=== PATIENT | female | born 1990 | race Hispanic/Latino ===

== ENCOUNTER 2018-06-15 06:44 | Day surgery (SDC) | payer OTHER, SELFPAY ==
[2018-06-14 12:25] VITALS: BMI 24.0
[2018-06-15] VITALS (10 sets, daily range): BP systolic 107–123; BP diastolic 68–84; PULSE 78–92; RESP 10–16; TEMP 36.1–36.6; O2SAT 81–100; BMI 25.0
[2018-06-15] MEDS: MIDAZOLAM 2 MG/2 ML VIAL IV (07:48)
[2018-06-15] MEDS: LACTATED RINGERS 1,000 ML 42 ML IV ×2 (07:48→08:54)
--- NOTE | 2018-06-15 07:51 | PM.PREOP ---
Pre-operative Note Interval Note Pre-op Check: Yes History & Physical Reviewed by Physician and Yes Exam Performed Changes: No
[2018-06-15] MEDS: CEFAZOLIN 2 GM/100 ML FROZ.PIGGY IV (07:56)
--- NOTE | 2018-06-15 08:22 | SUR.OPER ---
Supine on padded OR bed, head on pillow, arms secured on padded arm boards at <90 degrees abduction, legs uncrossed, safety belt at thigh, tape over blanket over lower legs.
[2018-06-15] MEDS: BUPIVACAINE 0.25% (PF) VIAL 30 ML INJ (08:30)
[2018-06-15] MEDS: fentaNYL 100 MCG/2 ML INJ 50 MCG IV ×2 (10:03→10:11)
--- NOTE | 2018-06-15 10:16 | P.OP_ITS ---
Operative Date/Time/Diagnoses Date of procedure: 06/15/18 Time of procedure: 08:05 Pre-op diagnosis: Left hallux valgus Post-op diagnosis: same Procedure & Clinicians Procedure: Left modified Her procedure Left 1st metatarsal scarf osteotomy Same procedure as scheduled: Yes Indications: 28-year-old female with a many years of a bunion deformity that has been symptomatic for over 18 months. 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 She failed shoe wear modifications and anti-inflammatory medications and was indicated for surgery. The risks, benefits, alternatives, were discussed. Risks include pain , bleeding, infection, lack of symptom relief, need for further procedures, implant complications, malunion, nonunion, transfer metatarsalgia, hallux varus , recurrent hallux valgus, neurovascular injury, numbness on the toe. She signed a consent form. Surgeon: Meño Mace Assistant Professor Of Theater: Nik Dias Click Yes if Unassisted: No Anesthesia Type: General and Local Operative Notes Findings: Hallux valgus. Scarf osteotomy reduced the intermetatarsal angle and reduce the sesamoids Closure Type: primary Specimen(s): none sent Implants & Drains: 2.0 mm screw x2 Estimated Blood Loss (mL): 5 Blood products transfused: none Tourniquet time (min): 83 Procedure in detail: The patient was met in the preop hold area and in the procedure. Operative extremity was signed. Consent was verified. She desired to proceed. She was brought to the operating room and surrendered anesthesia. Once general anesthesia been obtained was placed in the supine position all bony prominences were well padded. She was then prepped and draped in standard sterile fashion. A surgical time-out was held to confirm the patient procedure , did a, allergies, images, antibiotics. All were in agreement we proceeded. An Esmarch was used to exsanguinate the limb and the tourniquet was elevated 250 mm of mercury. A 2 cm incision was made after localizing with fluoroscopy between the 1st and 2nd metatarsal heads at the level of the sesamoids. Blunt dissection was brought down to the interval and the lateral sesamoid was identified. The insertion of the adductor and the intermetatarsal ligament was identified and sharply transected with a 15 blade. I then made a sharp incision between the sesamoid and the metatarsal head releasing the sesamoid from the capsule. The sesamoid was then freely mobile and the toe was brought into varus. A 7 cm longitudinal incision was then made over the medial aspect of the 1st metatarsal. Scissor dissection was used distally to identify the nerve and it was retracted dorsally. I sharply came down through the capsule and the periosteal tissue released the capsule from the metatarsal head. I took care to leave soft tissue attachments on the plantar distal surface of the metatarsal neck to preserve the blood supply. Once visualization was adequate in placed Homans on the top and bottom. Identified the center of the metatarsal head and marked it with the electrocautery. I then used fluoroscopy to establish my trajectory for the transverse cuts as well as the level of the cut proximally. I ensured to be at the metaphyseal flare. I then made my transverse cut of the dorsal 1/3 near the metatarsal head and left that saw blade in place. I then made parallel transverse cut in the plantar proximal metatarsal at the metaphyseal flare. A 2nd cut was then made 3 mm proximal to that. I then made a longitudinal cut in the coronal plane and foot ensuring it to be parallel to the plantar surface of the foot. I then used a [place] elevator to release the periosteal tissue from the far side of the osteotomy. I then used a towel clip to grab the medial spike and pushed the medics tarsal head laterally. This was then clamped with the scarf clamp. X-rays were taken to ensure an adequate reduction. I pulled on the plantar capsule and ensured I can reduce the sesamoids. Satisfied with the position of the osteotomy I placed 2 screws from dorsal to plantar. The distal screw I visualized the metatarsal head and sure that it was not seen. Plantarly I ensured bicortical purchase while viewing plantarly. The clamp was then removed and the osteotomy was very stable. I then used a sagittal saw to remove the dorsal medial spike of bone. X-rays were used to confirm the reduction and position of implants. I then irrigated the wound copiously and placed the medial shelf bone plantarly in the osteotomy site. Satisfied with this I removed a small sleeve of the plantar capsule for further imbrication. I then imbricated from plantar distal to proximal dorsal using 0 Vicryl with 5 sutures. This pulled the toe over very nicely and reduce the sesamoids. I then closed the periosteal tissue with 0 Vicryl the dermal tissue with 2 O Vicryl and a running nylon in the skin. Vertical mattress sutures were used in a modified Her incision. I then placed a dressing and the tourniquet was dropped. It was noted that the great toe did not fill with blood to the same extent the lesser toes did. I then removed the dressing and examined the incisions. There was no significant bleeding coming out of the incisions and there is no significant swelling. After waiting for 1 min the great toe became hyperemic similar to the other toes. A dressing was then again placed but nothing was placed circumferentially around the base of the great toe. She was then awakened and transferred to the recovery room. Complications: none Condition: stable Disposition: same day surgery Plan for aftercare: Nonweightbearing for 2 weeks. She may begin weight-bearing in a forefoot offloading shoe at that time. She will wear a hard-soled shoe until there is radiographic evidence of healing.
[2018-06-15] MEDS: LORazepam 2 MG/ML SYRINGE 0.5 MG IV (10:20)
[2018-06-15] MEDS: OXYCODONE IR 5 MG TABLET PO (10:52)
[2018-06-15] MEDS: METOCLOPRAMIDE 10 MG/2 ML INJ IV (11:00)
[2018-06-15] MEDS: ONDANSETRON 4 MG/2 ML INJ IV (11:11)
== END 2018-06-15 11:48 | disposition home or self-care (01) ==
PROVIDERS: Visit Provider Orthopaedic Surgery
PROC: 0QBP0ZZ Excision of Left Metatarsal, Open Approach (ICD-10-PCS; CPT 28292; principal; 2018-06-15 07:45)
DX: M21.612 Bunion of left foot (principal)
CPT/HCPCS: 28296; J0690; J1100; J2060; J2250; J2405; J2704; J2765; J3010

== ENCOUNTER → 2022-03-02 06:54 | Outpatient (CLI) | payer OTHER, SELFPAY ==
[2022-03-02 07:49] LABS: HCG Quantitative /Beta subunit 259.4 mIU/mL
== END ==
PROVIDERS: PCP Family Medicine; Referring Provider Obstetrics & Gynecology Reproductive Endocrinology; Visit Provider Obstetrics & Gynecology Reproductive Endocrinology
DX: Z32.00 Encounter for pregnancy test, result unknown (principal)
CPT/HCPCS: 36415; 84702

== ENCOUNTER → 2022-03-04 07:05 | Outpatient (CLI) | payer OTHER, SELFPAY ==
[2022-03-04 08:43] LABS: HCG Quantitative /Beta subunit 791.3 mIU/mL
[2022-03-04 08:58] LABS: Thyroid Stimulating Hormone 1.67 uIU/mL (0.47-4.68)
== END ==
PROVIDERS: PCP Family Medicine; Referring Provider Obstetrics & Gynecology Reproductive Endocrinology; Visit Provider Obstetrics & Gynecology Reproductive Endocrinology
DX: Z32.01 Encounter for pregnancy test, result positive (principal)
CPT/HCPCS: 36415; 84443; 84702

== ENCOUNTER → 2022-04-01 16:00 | Outpatient (CLI) | payer OTHER, SELFPAY ==
[2022-04-01 16:24] LABS: Add Manual Diff / Slide Review NO; Basophils Absolute Auto 100 /uL (0-100); Basophils Percent Auto 0.5 % (0-2); Eosinophils Absolute Auto 100 /uL (0-450); Eosinophils Percent Auto 1.2 % (2-4); Hematocrit 36.8 % (36-46); Hemoglobin 12.5 g/dL (12.0-16.0); Lymphocytes Absolute Auto 2500 /uL (1100-4500); Lymphocytes Percent Auto 23.8 % (25-40); Mean Corpuscular HGB Conc 33.8 % (30-36); Mean Corpuscular Hemoglobin 29.6 PG (26-34); Mean Corpuscular Volume 87.4 fL (80-100); Monocytes Absolute Auto 800 /uL (0-900); Monocytes Percent Auto 7.7 % (3-14); Neutrophils Absolute Auto 7100 /uL (1500-7000); Neutrophils Percent Auto 66.8 % (50-75); Platelet Count 261 X10^3/uL (150-400); Red Blood Cell Count 4.22 X10^6/uL (4.0-5.2); Red Cell Distribution Width 12.7 % (11.6-14.8); White Blood Cell Count 10.6 X10^3/uL (4.5-11.0)
[2022-04-02 04:37] LABS: RPR Screen Non Reactive (Non Reactive)
[2022-04-02 08:53] LABS: Varicella IgG Antibody 309 index (Immune >165)
[2022-04-04 04:18] LABS: HIV 1 & 2 Ab/Ag 4th Gen Combo NEGATIVE (NEGATIVE); Hep C Virus Ab w/Reflex Quant NEGATIVE s/c (NEGATIVE); Hepatitis B Surface Antigen NEGATIVE s/c (NEGATIVE); Rubella Antibody IgG 6.8 IU/mL (>15)
== END ==
PROVIDERS: PCP Family Medicine; Referring Provider Obstetrics & Gynecology; Visit Provider Obstetrics & Gynecology
DX: Z34.01 Encounter for supervision of normal first pregnancy, first trimester (principal)
CPT/HCPCS: 36415; 80055; 86787; 86803; 86850; 86900; 86901; 87389

== ENCOUNTER → 2022-04-14 12:47 | Outpatient (CLI) | payer OTHER, SELFPAY ==
[2022-04-14 13:11] LABS: Appearance Urine UA SL CLOUDY; Bilirubin Urine UA NEGATIVE (NEGATIVE); Color Urine UA YELLOW; Glucose Urine UA NEGATIVE (Negative); Ketones Urine UA NEGATIVE (NEGATIVE); Leukocyte Esterase Urine UA NEGATIVE (NEGATIVE); Nitrite Urine UA NEGATIVE (Negative); Occult Blood Urine UA TRACE-INTACT (Negative); Protein Urine UA NEGATIVE (Negative); Specific Gravity Urine UA 1.025 (1.000-1.035); Urobilinogen Urine UA 0.2 E.U./dL (0.2)
[2022-04-14 13:13] LABS: pH Urine UA 5.5 (4.5-8.0)
== END ==
PROVIDERS: PCP Family Medicine; Referring Provider Obstetrics & Gynecology; Visit Provider Obstetrics & Gynecology
DX: Z34.01 Encounter for supervision of normal first pregnancy, first trimester (principal)
CPT/HCPCS: 81003; 87086

== ENCOUNTER → 2022-05-31 11:49 | Outpatient (CLI) | payer OTHER, SELFPAY ==
[2022-06-07 12:08] LABS: AFP Value 40.8 ng/mL (.); Gest Age on Col Date 16.9 weeks (.); Gestational Age As provided (.); Insulin Dep Diabetes No (.); OSBR Risk 1IN 9862 (.); Results Report (.); Test Results *Screen Negative* (.)
== END ==
PROVIDERS: Referring Provider Obstetrics & Gynecology; Visit Provider Obstetrics & Gynecology
DX: Z34.02 Encounter for supervision of normal first pregnancy, second trimester (principal); Z3A.16 16 weeks gestation of pregnancy
CPT/HCPCS: 36415; 82105

== ENCOUNTER → 2022-06-24 10:05 | Outpatient (CLI) | payer OTHER, SELFPAY ==
--- NOTE | 2022-06-24 10:05 | DI.US.S_ITS ---
PROCEDURE: US OB >= 14 WEEKS FETUS INDICATIONS: 20 week anatomy scan OUTSIDE/PRIOR DATING DATA: Last menstrual period (LMP): 02/01/2022 LMP-based estimated date of delivery (NELSON): 11/08/2022 First dating scan (date and location): Not available Estimated date of delivery (NELSON) from first dating scan: Not available The calculations are made using the clinically provided NELSON of 11/08/2022. TECHNIQUE: Real-time scanning was performed of the fetus, with image documentation and biometric measurements. Endovaginal scanning: Not indicated COMPARISON: None. FINDINGS: General: A single living intrauterine gestation is present. Presentation: Breech. Placenta: Placental position is posterior, without previa. Amniotic fluid index: 11.2 cm, normal range is 5-24 cm. Single deepest vertical pocket is 3.8 cm. heart rate: 122 beats per minute. Maternal cervical canal: 3 cm long. Normal lower limit is 2.5 cm. biometrics: Biparietal diameter: 4.83 cm, 20 weeks, 4 days. Head circumference: 18.36 cm, 20 weeks, 5 days. Abdominal circumference: 15.67 cm, 20 weeks, 6 days. Femur length: 3.35 cm, 20 weeks, 3 days. Clinically estimated gestational age: 20 weeks, 3 days Composite gestational age from present scan: 20 weeks, 5 days Estimated weight and percentile: 370 g, 60%. Anatomic survey: Neuro: Ventricles are non-dilated at less than 10 mm. Cisterna magna is normal at 3-11 mm. Cerebellum is normal in size and morphology. Nuchal skin fold: Normal at less than 6 mm between 14-21 weeks gestational age. Face: Nose and lips, facial profile are not well seen. Spine: Not well seen Heart: 4-chambered heart is present. Right ventricular outflow tract is not well seen. Diaphragm: Diaphragm is intact. Stomach: Left-sided stomach is present. Kidneys: No hydronephrosis. Normal is less than 5 mm in 2nd trimester, less than 7 mm in 3rd trimester. Cord: 3-vessel cord has orthotopic insertion. Bladder: Normal in size. Extremities: All 4 extremities identified. IMPRESSION: 1. Single live intrauterine gestation with fetus in breech presentation. heart rate is 122 beats per minute. Normal amount of amniotic fluid. Estimated weight is at 60%. 2. facial profile, spine, and outflow tracts are not well seen due to position. Rest of the anatomic survey is within normal limits. We strive to produce accurate, complete, and clear reports of imaging services. To assist us in improving patient care, this report was composed using standard report templates and voice recognition software. Therefore, it may contain abnormal punctuation, insertions and/or omissions. Occasional wrong-word or sound-alike substitutions may occur. Though we review the report and make efforts to correct it, we do recommend that the report be read carefully in proper context to recognize any text inaccuracies. Dictated by: Mac Yepez M.D. on 06/24/2022 at 12:14 Approved by: Mac Yepez M.D. on 06/24/2022 at 12:17
== END ==
PROVIDERS: Referring Provider Obstetrics & Gynecology; Visit Provider Obstetrics & Gynecology
DX: O32.1XX0 Maternal care for breech presentation, not applicable or unspecified (principal); Z3A.20 20 weeks gestation of pregnancy
CPT/HCPCS: 76811

== ENCOUNTER → 2022-06-29 10:40 | Outpatient (CLI) | payer OTHER, SELFPAY ==
[2022-06-29 15:32] LABS: Urine N gonorrhoeae NOT DETECTED
[2022-06-29 15:40] LABS: Urine Chlamydia NOT DETECTED
== END ==
PROVIDERS: Visit Provider Obstetrics & Gynecology
DX: Z34.02 Encounter for supervision of normal first pregnancy, second trimester (principal); Z3A.21 21 weeks gestation of pregnancy
CPT/HCPCS: 87491; 87591

== ENCOUNTER → 2022-07-05 09:00 | Outpatient (CLI) | payer OTHER, SELFPAY | PROVIDERS: Referring Provider Internal Medicine; Visit Provider Internal Medicine | DX: Z23 Encounter for immunization (principal) | CPT/HCPCS: 90471; 90686 ==

== ENCOUNTER → 2022-07-27 09:07 | Outpatient (CLI) | payer OTHER, SELFPAY ==
--- NOTE | 2022-07-27 09:07 | DI.US.S_ITS ---
PROCEDURE: US OB FOLLOW UP INDICATIONS: RE-EVALUATE TECHNIQUE: Real-time scanning was performed of the fetus, with image documentation. Endovaginal scanning: Not performed COMPARISON: 06/26/2022. FINDINGS: A single living intrauterine gestation is present. Presentation: Vertex. Placenta: Placental position is posterior, without previa. Amniotic fluid index: 10.5 cm, normal range is 5-24 cm. Single deepest vertical pocket is 4.9 cm. heart rate: 123 beats per minute. Maternal cervical canal: 3.4 cm long. Normal lower limit is 2.5 cm. Estimated gestational age from initial scan: 25 weeks 3 days facial profile is normal. Normal appearance of the spine. Right ventricular outflow tract appears normal.. IMPRESSION: Single living intrauterine gestation with normal completion anatomic survey. Dictated by: Rey Thornton M.D. on 07/27/2022 at 13:46 Approved by: Rey Thornton M.D. on 07/27/2022 at 13:48
== END ==
PROVIDERS: Referring Provider Obstetrics & Gynecology; Visit Provider Obstetrics & Gynecology
DX: Z36.2 Encounter for other antenatal screening follow-up (principal); Z3A.25 25 weeks gestation of pregnancy
CPT/HCPCS: 76816

== ENCOUNTER → 2022-08-10 08:34 | Outpatient (CLI) | payer OTHER, SELFPAY ==
[2022-08-10 10:19] LABS: Hemoglobin 11.2 g/dL (12.0-16.0)
[2022-08-10 10:44] LABS: GTT (PREG) 1 Hour PP 50gm Dose 156 mg/dL (76-139)
== END ==
PROVIDERS: Referring Provider Obstetrics & Gynecology; Visit Provider Obstetrics & Gynecology
DX: Z34.02 Encounter for supervision of normal first pregnancy, second trimester (principal); Z3A.26 26 weeks gestation of pregnancy
CPT/HCPCS: 82950; 85014; 85018

== ENCOUNTER → 2022-08-15 07:37 | Outpatient (CLI) | payer OTHER, SELFPAY ==
[2022-08-15 10:27] LABS: Glucose Fasting Gestational 84 mg/dL (76-95)
[2022-08-15 10:47] LABS: Glucose 1 Hour Gest 207 mg/dL (76-180)
[2022-08-15 10:47] LABS: Glucose 2 Hour Gest 178 mg/dL (76-155)
[2022-08-15 10:53] LABS: Glucose Tol Interp,Gestational INTERPRETATION
[2022-08-15 11:40] LABS: Glucose 3 Hour Gest 69 mg/dL (76-140)
== END ==
PROVIDERS: Referring Provider Obstetrics & Gynecology; Visit Provider Obstetrics & Gynecology
DX: O99.810 Abnormal glucose complicating pregnancy (principal)
CPT/HCPCS: 36415; 82951; 82952

== ENCOUNTER 2022-08-17 13:56 | Outpatient (CLI) | payer OTHER, SELFPAY ==
--- NOTE | 2022-08-17 14:37 | DI.US.S_ITS ---
PROCEDURE: US OB BIOPHYSICAL PROFILE INDICATIONS: DECREASED MOVEMENT. OUTSIDE/PRIOR DATING DATA: Last menstrual period (LMP): 02/01/2022. LMP-based estimated date of delivery (NELSON): 11/08/2022. First dating scan (date and location): 06/24/2022. Estimated date of delivery (NELSON) from first dating scan: 11/06/2022. TECHNIQUE: Real-time scanning was performed of the fetus for biophysical profile, with image documentation. Color and pulse Doppler interrogation was also performed of the umbilical artery near its insertion into the placenta. Endovaginal scanning: None COMPARISON: None. FINDINGS: General: A single living intrauterine gestation is present. Presentation: Vertex. Placenta: Placental position is posterior , without previa. Amniotic fluid index: 15.3 cm, normal range is 5-24 cm. Single deepest vertical pocket is 5.1 cm. heart rate: 118 beats per minute. Maternal cervical canal: 3.4 cm long. Normal lower limit is 2.5 cm. Estimated gestational age from initial scan: 28 week 1 day. Biophysical profile: Tone: 2 points. Movement: 2 points. Respiration: 2 points. Largest pocket of fluid: 2 points. IMPRESSION: Single live intrauterine consistent with a 28 week 1 day gestation. Biophysical profile score 8/8 Approved by: Grayson Aggarwal M.D. on 08/17/2022 at 15:18
--- NOTE | 2022-08-17 15:46 | P.TNLD_ITS ---
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 ago while at work. She presents to the [facility] for evaluation. Her baby remains normally active and she denies contractions, bleeding, or significant change in vaginal discharge. Vital Signs Vital Signs: BP = 123/70 P = 85 T = 36.5C [facility] Medical History (Updated 08/18/22 @ 07:21 by Cortes Lyon MD) Abnormal Pap smear of cervix Ankle pain (~2004) Arthritis Bunion of great toe of left foot Heart murmur (~1990) Human papilloma virus Pain Surgical History (Updated 04/19/22 @ 17:54 by Cortes Lyon MD) Anesthesia H/O ovarian cystectomy History of ankle surgery History of bunionectomy (~2017) Hx of appendectomy Status post ORIF of fracture of ankle Family History (Updated 04/18/22 @ 21:00 by Roberta Morfin) Mother Bipolar affect, depressed Lupus Grandfather Diabetes mellitus Hypertension Hyperlipidemia Grandmother Hyperlipidemia Hypertension Hyperthyroidism Bipolar affect, depressed Grandmother Cancer Social History marital status: number of children: 0 household members: spouse lives independently: Yes housing: house pets and animals: Yes (2 dogs) education level: master's degree occupational status: employed current occupational exposures/hazards: No special gualberto needs: No travel history: over 6 months ago seatbelt use: always helmet use: Yes water heater temp set < 120 deg: Yes (Will check and adjust) working smoke detector in home: Yes fire extinguisher in home: Yes carbon monox detector in home: Yes firearms in home: Yes firearms unloaded and locked: Yes do you feel safe at home: Yes Smoking Status: Never smoker second hand exposure: No (as a child, not as adult) alcohol intake: former (occasional social drinker, not while ) substance use type: does not use during the past year weight has: remained stable well-balanced diet: daily or most days daily servings fruits/ve or more times/day caffeine: Yes (Aware of 200mg limit) Type(s) of exercise: walking frequency: 3-4 times per week Review of Systems Review of Systems Narrative: Problem-specific ROS positives included in HPI Exam Const General: cooperative and anxious Nutritional Appearance: average body habitus Orientation: alert and oriented x3 HENMT Head: normal to inspection, normocephalic and atraumatic Eyes General: appearance normal, both eyes and all related structures Conjunctivae: conjunctivae normal Sclera: sclerae normal Pupils: PERRL EOM: EOM intact bilaterally Neck Neck: normal visual inspection Resp Effort & Inspection: normal respiratory effort and able to speak in complete sentences Cardio Rate: regular rate Rhythm: regular rhythm GI Inspection: normal to inspection Palpation: soft and no hepatosplenomegaly Uterus Location (Fundal Height): 28 Presentation: vertex Estimated Weight (lbs): 4 Extrem Right lower extremity: normal to inspection Objective Imaging BPP: Radiologist's impression: PROCEDURE:? US OB BIOPHYSICAL PROFILE ? INDICATIONS:? DECREASED MOVEMENT. ? OUTSIDE/PRIOR DATING DATA:? Last menstrual period (LMP):? 02/01/2022.? LMP-based estimated date of delivery (NELSON):? 11/08/2022.? First dating scan (date and location):? 06/24/2022.? Estimated date of delivery (NELSON) from first dating scan:? 11/06/2022. ? TECHNIQUE:? Real-time scanning was performed of the fetus for biophysical profile, with image documentation.? Color and pulse Doppler interrogation was also performed of the umbilical artery near its insertion into the placenta.? Endovaginal scanning:? None ? COMPARISON:? None. ? FINDINGS:? ? General:? A single living intrauterine gestation is present.? Presentation:? Vertex.? Placenta:? Placental position is posterior , without previa.? ? Amniotic fluid index:? 15.3 cm, normal range is 5-24 cm.? Single deepest vertical pocket is 5.1 cm. heart rate:? 118 beats per minute.? Maternal cervical canal:? 3.4 cm long.? Normal lower limit is 2.5 cm.? Estimated gestational age from initial scan:? 28 week 1 day.? ? Biophysical profile:? Tone:? 2 points. Movement:? 2 points. Respiration:? 2 points. Largest pocket of fluid:? 2 points.?? ? IMPRESSION:? ? Single live intrauterine consistent with a 28 week 1 day gestation. ? Biophysical profile score 05/16 Evaluation Evaluation Baseline heart rate: 115 Variability: Average (6-10) monitor accelerations: Present Monitor Decelerations: Absent Category of Tracing: Reactive Non-invasive Membranes Rupture Test: negative Diagnosis, Plan/Disposition Final Diagnosis (1) Gestational diabetes: Status: Acute (2) Conceived by in vitro fertilization: Status: Acute (3) : Status: Acute Problem details: 28+0 weeks EGA, low baseline FHR but reactive for EGA (4) Rubella non-immune status, antepartum: Status: Acute Plan/Disposition Plan: Patient reassured that there's no evidence of PPROM w/ negative AmniSure and normal GERMAIN. Also reassured that @ 5% of infants have a low baseline FHR below 120BPM but she is understandably anxious and will facilitate a return visit with [facility] for their assessment and input re: surveillance going forward. Patient will continue kick counts and note written for bedrest until seen next week and re-evaluated. PTL precautions reviewed. OB Disposition: home
== END 2022-08-17 15:45 | disposition home or self-care (01) ==
LOC: LABOR 15:02 → OB 08-29 07:49
PROVIDERS: Referring Provider Obstetrics & Gynecology; Visit Provider Obstetrics & Gynecology
DX: Z03.71 Encounter for suspected problem with amniotic cavity and membrane ruled out (principal); O24.415 Gestational diabetes mellitus in pregnancy, controlled by oral hypoglycemic drugs; O09.813 Supervision of pregnancy resulting from assisted reproductive technology, third trimester; Z3A.28 28 weeks gestation of pregnancy
CPT/HCPCS: 59025; 76817; 76819; 84112; G0378; G0379

== ENCOUNTER 2022-08-19 12:29 | Outpatient (CLI) | payer OTHER, SELFPAY ==
--- NOTE | 2022-08-19 13:31 | PM.OBTRLD ---
Visit Information Visit Information Date of evaluation: 08/19/22 Primary OB Provider: Cortes Lyon On-call OB Provider: Cortes Lyon Reason for Evaluation: Yes non-stress test Comments/Additional reasons for admission: Ashlee returns today for a follow-up NST after her baseline HR was found to be below 120 BPM at a recent assessment. Labs pending for Sjogren's AB's due to FH of lupus and she is due to have another echo at [facility] on 08/24/2022. [facility] Medical History (Updated 08/18/22 @ 07:21 by Cortes Lyon MD) Abnormal Pap smear of cervix Ankle pain (~2004) Arthritis Bunion of great toe of left foot Heart murmur (~1990) Human papilloma virus Pain Surgical History (Updated 04/19/22 @ 17:54 by Cortes Lyon MD) Anesthesia H/O ovarian cystectomy History of ankle surgery History of bunionectomy (~2017) Hx of appendectomy Status post ORIF of fracture of ankle Family History (Updated 04/18/22 @ 21:00 by Roberta Morfin) Mother Bipolar affect, depressed Lupus Grandfather Diabetes mellitus Hypertension Hyperlipidemia Grandmother Hyperlipidemia Hypertension Hyperthyroidism Bipolar affect, depressed Grandmother Cancer Social History marital status: number of children: 0 household members: spouse lives independently: Yes housing: house pets and animals: Yes (2 dogs) education level: master's degree occupational status: employed current occupational exposures/hazards: No special gualberto needs: No travel history: over 6 months ago seatbelt use: always helmet use: Yes water heater temp set < 120 deg: Yes (Will check and adjust) working smoke detector in home: Yes fire extinguisher in home: Yes carbon monox detector in home: Yes firearms in home: Yes firearms unloaded and locked: Yes do you feel safe at home: Yes Smoking Status: Never smoker second hand exposure: No (as a child, not as adult) alcohol intake: former (occasional social drinker, not while ) substance use type: does not use during the past year weight has: remained stable well-balanced diet: daily or most days daily servings fruits/ve or more times/day caffeine: Yes (Aware of 200mg limit) Type(s) of exercise: walking frequency: 3-4 times per week Evaluation Evaluation Baseline heart rate: 115 Variability: Average (6-10) monitor accelerations: Present Monitor Decelerations: Absent Category of Tracing: Reactive Diagnosis, Plan/Disposition Plan/Disposition Plan: Continue close observation of activity and follow-up as planned with another NST to be scheduled for 08/22/2022. OB Disposition: home
== END 2022-08-19 13:28 | disposition home or self-care (01) ==
LOC: LABOR 13:16 → OB 08-29 07:51
PROVIDERS: Referring Provider Obstetrics & Gynecology; Visit Provider Obstetrics & Gynecology
DX: O36.8330 Maternal care for abnormalities of the fetal heart rate or rhythm, third trimester, not applicable or unspecified (principal); O24.415 Gestational diabetes mellitus in pregnancy, controlled by oral hypoglycemic drugs; Z3A.28 28 weeks gestation of pregnancy; Z13.89 Encounter for screening for other disorder; Z82.69 Family history of other diseases of the musculoskeletal system and connective tissue
CPT/HCPCS: 36415; 59025; 86235; 97802; G0378; G0379

== ENCOUNTER → 2022-08-19 13:36 | Outpatient (CLI) | payer OTHER, SELFPAY ==
[2022-08-20 20:56] LABS: SS A Ro Sjogrens Antibody < 0.2 AI (0.0-0.9); SS B La Sjogrens Antibody < 0.2 AI (0.0-0.9)
--- NOTE | 2022-08-23 16:41 | DIAB.GDA ---
Initial Gestational Diabetes Assessment Name: Ashlee Clemens Date: 08/19/22 Time: 205-320p Dx: Gestational Diabetes Provider: Camron NELSON: 11/09/22 Weeks: 28 Ashlee presents for initial visit with , Taras. +FH of DM with maternal grandfather. Otherwise, no FH of DM. Ashlee is having a girl! States she has been following plate method for meals. Feels as though she needs some ideas for snack and feeling more satiated with meals/snacks. Feels she is craving foods, particularly sweets. Taking Metformin 500mg BID Diet Recall: 620-730a: oatmeal +/- eggs or 1/2 wjeat bagel with eggs 9-930a: cheese or pb crackers or granola bar 1130a: chicken quesadilla with one tortilla or PBJ 2p: nuts or fruit strip or chips and guac 4p: pb crackers pkged or apples and pb or pb 630p: ww pasta x 2c with sauce and salad, no protein or pork chops with green beans and corn or steak and veggies +/- potato or sausage and peppers 830p: low carb yogurt with berries or strawberries with whip cream Beverages: 48-60oz water, coffee occasionally Anthropometrics: Ht: 64 Wt: 176# (last OB) Prepregnancy wt: 147# Physical Activity: More movement at work. No current program. Self-Monitoring Blood Glucose: Checking FBG and 1hr pc. One elevated pc breakfast r/t oatmeal + banana. Otherwise, all readings in goal. Date Pre Post Pre Post Pre Post HS 08/16 96 08/17 81 144 91 112 08/18 82 123 125 95 08/19 81 136 84 Diabetes Medications: 500mg Metformin BID Pertinent Labs: OGTT: 84, 207H. 178H, 69L Nutrition Rx: Carbohydrates: Daily: 180-195g Meal: 45-g lunch and dinner; 30g breakfast Snack: 15-30g Nutrition Diagnosis: Altered nutrition related lab value r/t GDM dx aeb recent OGTT Nutrition knowledge deficit r/t new GDM dx aeb OGTT and diet recall Physical inactivity r/t no current program, contemplation stage potentially aeb pt report Intervention: This participant was very receptive. Provided appropriate educational handouts. Discussed the following topics: GDM pathophysiology and impact of hyperglycemia on mom and baby Risk for T2DM for mom and baby in the future Ways to reduce risk T2DM Plate Method, meal timing, carb counting, pairing macronutrients and spreading out CHO for better BG management Blood glucose goals (FBG: <95 and 1 hour <140 mg/dL); importance of checking 4x per day (FBG and pc) Impact of macronutrients on blood glucose Tips for satiety Sweets that have pro and are within carb recs to fulfill cravings Eating out Recommended servings for carbohydrates at meals and snacks Brainstormed appropriate meal plan based on her food preferences Role of physical activity and following provider guidelines for safety Goals: Measure jam in PBJ Balance lunch as discussed try 1 snack in afternoon that is balanced Think about exercise Follow-up: ADINA HARVEY follow-up in two weeks Melody Chery RDN, [facility] Certified Diabetes Care and Store Keeper T: [phone] F: [phone] [email or web address] Thank you for this referral
== END ==
PROVIDERS: Referring Provider Obstetrics & Gynecology; Visit Provider Obstetrics & Gynecology
DX: Z13.89 Encounter for screening for other disorder (principal); Z82.69 Family history of other diseases of the musculoskeletal system and connective tissue
CPT/HCPCS: 36415; 86235; 97802

== ENCOUNTER 2022-08-22 09:21 | Outpatient (CLI) | payer OTHER, SELFPAY ==
--- NOTE | 2022-08-22 10:05 | PM.OBTRLD ---
Visit Information Visit Information Date of evaluation: 08/22/22 Primary OB Provider: Cortes Lyon On-call OB Provider: Lexi Perez Reason for Evaluation: Yes non-stress test non-stress test reason: other (low baseline) Vital Signs Vital Signs: Blood pressure 114/68 rate 85 PFSH Medical History Abnormal Pap smear of cervix Ankle pain (~2004) Arthritis Bunion of great toe of left foot Heart murmur (~1990) Human papilloma virus Pain Surgical History Anesthesia H/O ovarian cystectomy History of ankle surgery History of bunionectomy (~2017) Hx of appendectomy Status post ORIF of fracture of ankle Family History Mother Bipolar affect, depressed Lupus Grandfather Diabetes mellitus Hypertension Hyperlipidemia Grandmother Hyperlipidemia Hypertension Hyperthyroidism Bipolar affect, depressed Grandmother Cancer Social History marital status: number of children: 0 household members: spouse lives independently: Yes housing: house pets and animals: Yes (2 dogs) education level: master's degree occupational status: employed current occupational exposures/hazards: No special gualberto needs: No travel history: over 6 months ago seatbelt use: always helmet use: Yes water heater temp set < 120 deg: Yes (Will check and adjust) working smoke detector in home: Yes fire extinguisher in home: Yes carbon monox detector in home: Yes firearms in home: Yes firearms unloaded and locked: Yes do you feel safe at home: Yes Smoking Status: Never smoker second hand exposure: No (as a child, not as adult) alcohol intake: former (occasional social drinker, not while ) substance use type: does not use during the past year weight has: remained stable well-balanced diet: daily or most days daily servings fruits/ve or more times/day caffeine: Yes (Aware of 200mg limit) Type(s) of exercise: walking frequency: 3-4 times per week Evaluation Evaluation Baseline heart rate: 110 Variability: Moderate (11-25) monitor accelerations: Present Monitor Decelerations: Absent Category of Tracing: Reactive Diagnosis, Plan/Disposition Final Diagnosis (1) 28 weeks gestation of : Status: Acute (2) Gestational diabetes: Status: Acute Plan/Disposition Plan: 32-year-old at 28 weeks and 6 days gestation here for NST due to low heart rate baseline. She was seen last week for the same. BPP was normal on 08/17/22. She is without complaints today and denies contractions, leaking or bleeding. Reports good. NST today with a baseline of 110 with good variability and age-appropriate accelerations. Clinical picture overall reassuring. Follow-up clinic tomorrow with Dr. Lyon as scheduled or return sooner if concerns arise. She also has follow-up scheduled with Maternal Medicine this week. OB Disposition: home
== END 2022-08-22 10:30 | disposition home or self-care (01) ==
LOC: OB 08-29 07:55
PROVIDERS: Referring Provider Obstetrics & Gynecology; Visit Provider Obstetrics & Gynecology
DX: O24.415 Gestational diabetes mellitus in pregnancy, controlled by oral hypoglycemic drugs (principal); O36.8330 Maternal care for abnormalities of the fetal heart rate or rhythm, third trimester, not applicable or unspecified; Z3A.28 28 weeks gestation of pregnancy
CPT/HCPCS: 59025; G0378; G0379

== ENCOUNTER → 2022-09-09 12:52 | Outpatient (CLI) | payer OTHER, SELFPAY ==
--- NOTE | 2022-09-09 16:56 | DIAB.GDFU ---
Follow-up Gestational Diabetes Assessment Name: Ashlee Clemens Date: 09/09/22 Time: 105-135p Dx: Gestational Diabetes Provider: Camron NELSON: 11/09/22 Weeks: 31 Ashlee presents for follow-up GDM visit. States she is transferring care to [facility] for access to a NICU due to cardiac findings. Plans for 39 week induction. Has had Metformin increased to 1000mg BID. Today she reports feeling very hungry, especially between breakfast and lunch. States she overall is not satiated with meals. With recent BG she could likely increase intake some, especially some protein and veggie options but also potentially some carbohydrates. Reports difficulty with diet changes and going on vacation. Reports some guilt with eating and worried about even small carb portions close to meals. Stated some concern that she did not gain much weight at recent OB visit. Anthropometrics: Ht: 64 Wt: 177# (last OB) Prepregnancy wt: 147# Recommend sustaining current weight for remainder of Physical Activity: More movement at work. No current program. Feels a lot of fatigue with current activity level. tries to stay busy on days off. Self-Monitoring Blood Glucose: Checking FBG and 1hr pc. All in goal, except one reading after dinner. Date Pre Post Pre Post Pre Post HS 09/03 88 118 129 111 09/04 93 118 147 09/05 75 119 86 103 09/06 80 112 98 92 09/07 78 91 102 09/08 88 107 85 09/09 77 122 Diabetes Medications: 1000mg Metformin BID Pertinent Labs: OGTT: 84, 207H. 178H, 69L Nutrition Rx: Carbohydrates: Daily: 180-195g Meal: 45-g lunch and dinner; 30g breakfast Snack: 15-30g Nutrition Diagnosis: Altered nutrition related lab value r/t GDM dx aeb recent OGTT Nutrition knowledge deficit r/t new GDM dx aeb OGTT and diet recall - improved Physical inactivity r/t no current program due to fatigue aeb pt report - cont Intervention: This participant was very receptive. Provided appropriate educational handouts. Discussed the following topics: Recent blood sugar results and impact of food and hormones Review of macronutrient recommendations during Reviewed ways to increase PO and satiety, ie protein, vegetables, some carb options Discussed ways family can be supportive in lifestyle changes Reviewed healthy weight goal of min gain or sustaining current weight is ok Physical activity barriers Reviewed BG goals: 1 hour pc of 110-140mg/dL Heidi in making changes to minimize guilt Goals: Measure jam in PBJ- d/c (none lately) Balance lunch as discussed- met try 1 snack in afternoon that is balanced- met Think about exercise- met Trial bagel and eggs for breakfast for increased satiety- new Add veggies to snacks- new Aim for 30g CHO at snacks consistently- new Follow-up: ADINA HARVEY follow-up in 2 weeks to discuss GDM recs. Melody Chery RDN, [facility] Certified Diabetes Care and Service Control Operator T: [phone] F: [phone] [email or web address] Thank you for this referral
== END ==
PROVIDERS: Referring Provider Obstetrics & Gynecology; Visit Provider Obstetrics & Gynecology
DX: O24.415 Gestational diabetes mellitus in pregnancy, controlled by oral hypoglycemic drugs (principal); Z3A.31 31 weeks gestation of pregnancy; Z71.3 Dietary counseling and surveillance
CPT/HCPCS: 97803

== ENCOUNTER → 2022-09-23 13:26 | Outpatient (CLI) | payer OTHER, SELFPAY ==
--- NOTE | 2022-09-27 13:58 | DIAB.GDFU ---
Follow-up Gestational Diabetes Assessment Name: Ashlee Clemens Date: 09/23/22 Time: 130-208p Dx: Gestational Diabetes Provider: Camron/Indian NELSON: 11/09/22 Weeks: 33 Ashlee presents for follow-up GDM visit. States BG have been well managed. Reports she has switched to Metformin 500mg BID (down from 1000 mg BID) per recs from Indian provider. She is worried about Metformin exposure to baby. States healthy eating does not sound good right now. Diet recall indicates mostly nutritious food options, ie cheese, whole grains, fruit, eggs. Some breakfast <30g CHO. Has questions regarding SMBG . plans to follow-up with Camron . Anthropometrics: Ht: 64 Wt: 177# (last [facility] OB) no new wt today Prepregnancy wt: 147# Recommend sustaining current weight for remainder of Physical Activity: no change Self-Monitoring Blood Glucose: All FBG in goal. 1 hour readings all in goal, with exception to one elevation after a higher carb breakfast on the go. Date Pre Post Pre Post Pre Post HS 09/17 83 120 131 81 09/18 77 111 109 78 09/19 72 134 129 115 09/20 75 159 116 99 09/21 75 84 128 121 09/22 80 112 137 09/23 85 117 134 Diabetes Medications: 500mg Metformin BID Pertinent Labs: OGTT: 84, 207H. 178H, 69L Nutrition Rx: Carbohydrates: Daily: 180-195g Meal: 45-g lunch and dinner; 30g breakfast Snack: 15-30g Nutrition Diagnosis: Altered nutrition related lab value r/t GDM dx aeb recent OGTT Physical inactivity r/t no current program due to fatigue aeb pt report - cont Intervention: This participant was very receptive. Provided appropriate educational handouts. Discussed the following topics: Recent blood sugar results and impact of food and hormones Review of recs from ACOG, ADA, and Caroline Middleton on Metformin in Review of Off-spring study regarding Metformin use Breakfast CHO intake Nutrition balance and choosing foods that are satisfying and as nutritious as she can Benefits, resources, and nutrition for recommendations for nutrition and physical activity recommendations for T2DM risk reduction OGTT at 6-12 weeks Checking blood sugars twice per week (goal: fasting <100 mg/dL and 2 hour pc <140 mg/dL) until 6 week check-up HgA1c q 1-3 years. Goals: Trial bagel and eggs for breakfast for increased satiety- met Add veggies to snacks- met Aim for 30g CHO at snacks consistently- not discussed Add 2 x toast for egg breakfast- new OGTT at 6-12 weeks- new hgA1c q 1-3 years - new Follow-up: ADINA HARVEY follow-up prn. Ashlee is managing her GDM very well. BG are in goal. She has a good grasp on nutrition recs and implementation. We reviewed her concerns and discussed recs today. Encouraged her to reach out for any questions or follow-up needs. Melody Chery RDN, [facility] Certified Diabetes Care and Straightening Press Operator Helper T: [phone] F: [phone] [email or web address] Thank you for this referral
== END ==
PROVIDERS: Referring Provider Obstetrics & Gynecology; Visit Provider Obstetrics & Gynecology
DX: O24.415 Gestational diabetes mellitus in pregnancy, controlled by oral hypoglycemic drugs (principal); Z3A.33 33 weeks gestation of pregnancy; Z71.3 Dietary counseling and surveillance
CPT/HCPCS: 97803

== ENCOUNTER → 2023-02-14 09:56 | Outpatient (CLI) | payer OTHER, SELFPAY ==
[2023-02-14 11:46] LABS: Glucose Fasting 81 mg/dL (70-100)
[2023-02-14 12:16] LABS: Glucose Tol Interpretation INTERPRETATION
[2023-02-14 13:02] LABS: Glucose 2 Hour 133 mg/dL (70-140)
[2023-02-14 13:02] LABS: Glucose 1 Hour 186 mg/dL (70-170)
== END ==
PROVIDERS: PCP Family Medicine; Referring Provider Obstetrics & Gynecology; Visit Provider Obstetrics & Gynecology
DX: Z86.32 Personal history of gestational diabetes (principal)
CPT/HCPCS: 36415; 82951; 82952

== ENCOUNTER → 2023-04-05 13:30 | Outpatient (CLI) | payer OTHER, SELFPAY ==
[2023-04-05 14:33] LABS: Alanine Aminotransferase 20 IU/L (<35); Albumin 4.5 g/dL (3.5-5.0); Albumin Globulin Ratio 1.4 (1.0-2.8); Alkaline Phosphatase 116 U/L (38-126); Aspartate Aminotransferase 34 IU/L (14-36); BUN Creatinine Ratio 25.4 (6-22); Bilirubin Total 0.3 mg/dL (0.2-1.3); Blood Urea Nitrogen 18 mg/dL (7-17); Calcium 9.3 mg/dL (8.4-10.2); Carbon Dioxide 27 mmol/L (22-32); Chloride 105 mmol/L (98-107); Cholesterol 190 mg/dL (140-199); Estimated Glomerular Filt Rate > 60 mL/min (>60); Globulin 3.3 g/dL (1.7-4.1); Glucose 86 mg/dL (70-100); HDL Cholesterol 82 mg/dL (40-60); HEMOLYSIS < 15 (0-50); LDL Cholesterol Calculated 92 mg/dL (<100); Potassium 4.1 mmol/L (3.4-5.1); Sodium 140 mmol/L (137-145); Total Protein 7.8 g/dL (6.3-8.2); Triglycerides 80 mg/dL (35-150)
[2023-04-06 06:17] LABS: Labcorp Hemoglobin (Hb) A1c 5.3 % (4.8-5.6)
== END ==
PROVIDERS: PCP Family Medicine; Referring Provider Family Medicine; Visit Provider Family Medicine
DX: Z00.00 Encounter for general adult medical examination without abnormal findings (principal); O24.419 Gestational diabetes mellitus in pregnancy, unspecified control
CPT/HCPCS: 36415; 80053; 80061; 83036

== ENCOUNTER → 2024-04-01 10:52 | Outpatient (CLI) | payer OTHER, SELFPAY ==
[2024-04-01 12:24] LABS: Hematocrit 39.5 % (36-46); Hemoglobin 13.4 g/dL (12.0-16.0); Mean Corpuscular HGB Conc 33.9 % (30-36); Mean Corpuscular Volume 88.6 fL (80-100); Platelet Count 242 X10^3/uL (150-400); Red Blood Cell Count 4.46 X10^6/uL (4.0-5.2); Red Cell Distribution Width 13.4 % (11.6-14.8); White Blood Cell Count 5.8 X10^3/uL (4.5-11.0)
[2024-04-01 12:28] LABS: Hemoglobin A1C% w Est Avg Glu 5.2 % (4.0-6.0)
[2024-04-01 12:37] LABS: BUN Creatinine Ratio 14.1 (6-22); Blood Urea Nitrogen 10 mg/dL (7-17); Calcium 9.3 mg/dL (8.4-10.2); Carbon Dioxide 29 mmol/L (22-32); Chloride 107 mmol/L (98-107); Estimated Glomerular Filt Rate > 60 mL/min (>60); Glucose 89 mg/dL (70-100); HEMOLYSIS < 15 (0-50); Potassium 4.3 mmol/L (3.4-5.1); Sodium 138 mmol/L (137-145)
[2024-04-01 12:54] LABS: Follicle Stimulating Hormone 3.49 mIU/mL; Luteinizing Hormone 9.03 mIU/mL; Progesterone, Total 1.07 ng/mL
[2024-04-01 13:13] LABS: Ferritin 18 ng/mL (6-137)
== END ==
PROVIDERS: PCP Family Medicine; Referring Provider Family Medicine; Visit Provider Family Medicine
DX: O24.419 Gestational diabetes mellitus in pregnancy, unspecified control (principal); N92.0 Excessive and frequent menstruation with regular cycle; R53.82 Chronic fatigue, unspecified; R63.1 Polydipsia
CPT/HCPCS: 36415; 80048; 82670; 82728; 83001; 83002; 83036; 84144; 85027

== ENCOUNTER → 2024-05-06 15:15 | Outpatient (CLI) | payer OTHER, SELFPAY ==
--- NOTE | 2024-05-06 15:16 | DI.US.S_ITS ---
PROCEDURE: US PELVIC COMPLETE INDICATIONS: Extremely heavy but regular periods TECHNIQUE: Real-time scanning was performed of the pelvic organs, with image documentation. Additional endovaginal scanning was necessary due to incomplete visualization of the adnexal and endometrial structures by transabdominal scanning. COMPARISON: None. FINDINGS: Uterus: Uterus is anteverted and normal in size at 7.4 x 4.2 x 4.8 cm. The myometrium is homogeneous. The endometrium measures 11 mm combined thickness. Cervix and vagina are within normal limits. Ovaries: The right ovary measures 3.3 x 1.5 x 1.9 cm, with a calculated ovarian volume of 4.9 cc. The left ovary measures 3.6 x 2.9 x 4 cm, with a calculated ovarian volume of 22 cc. Left ovarian heterogeneous lesion measuring 2.4 x 2.6 x 2.5 cm. Less than 12 follicles can be seen in each ovary. No adnexal masses are seen. Other: No pathologic free abdominal or pelvic fluid. IMPRESSION: 1. Normal sonographic appearance of the uterus and right ovary. 2. Complex cystic lesion in the left ovary which may represent a hemorrhagic cyst. Recommend a repeat pelvic ultrasound in 8-10 weeks to document evolution/resolution. We strive to produce accurate, complete, and clear reports of imaging services. To assist us in improving patient care, this report was composed using standard report templates and voice recognition software. Therefore, it may contain abnormal punctuation, insertions and/or omissions. Occasional wrong-word or sound-alike substitutions may occur. Though we review the report and make efforts to correct it, we do recommend that the report be read carefully in proper context to recognize any text inaccuracies. Dictated by: Vishnu Ham M.D. on 05/08/2024 at 15:32 Approved by: Vishnu Ham M.D. on 05/08/2024 at 15:50
== END ==
PROVIDERS: PCP Family Medicine; Referring Provider Obstetrics & Gynecology; Visit Provider Obstetrics & Gynecology
DX: N92.0 Excessive and frequent menstruation with regular cycle (principal); N83.292 Other ovarian cyst, left side
CPT/HCPCS: 76856

== ENCOUNTER → 2024-06-21 07:35 | Outpatient (CLI) | payer OTHER, SELFPAY ==
[2024-06-21 08:51] LABS: Influenza A - CEPHEID Flu A NEGATIVE (NEGATIVE); Influenza B - CEPHEID Flu B NEGATIVE (NEGATIVE); Respiratory Syncytial Virus Negative (Negative)
[2024-06-21 09:14] LABS: COVID-19 CEPHEID 4-PLEX PCR Negative (Negative)
== END ==
PROVIDERS: PCP Family Medicine; Visit Provider Student in an Organized Health Care Education/Training Program
DX: J02.9 Acute pharyngitis, unspecified (principal); R05.1 Acute cough
CPT/HCPCS: 0241U; 87070

== ENCOUNTER → 2024-07-09 08:33 | Outpatient (CLI) | payer OTHER, SELFPAY ==
[2024-07-09 09:34] LABS: Influenza A - CEPHEID Flu A NEGATIVE (NEGATIVE); Influenza B - CEPHEID Flu B NEGATIVE (NEGATIVE); Respiratory Syncytial Virus Negative (Negative)
[2024-07-09 09:37] LABS: COVID-19 CEPHEID 4-PLEX PCR Negative (Negative)
== END ==
PROVIDERS: PCP Family Medicine; Visit Provider Physician Assistant Surgical
DX: J02.9 Acute pharyngitis, unspecified (principal); R05.1 Acute cough
CPT/HCPCS: 0241U; 87070

== ENCOUNTER → 2024-10-17 09:02 | Outpatient (CLI) | payer OTHER, SELFPAY ==
[2024-10-17 09:29] LABS: Hemoglobin A1C% w Est Avg Glu 5.2 % (4.0-6.0)
[2024-10-17 10:43] LABS: Ferritin 31 ng/mL (6-137)
== END ==
PROVIDERS: PCP Family Medicine; Referring Provider Family Medicine; Visit Provider Family Medicine
DX: O24.419 Gestational diabetes mellitus in pregnancy, unspecified control (principal); R73.01 Impaired fasting glucose; J32.9 Chronic sinusitis, unspecified
CPT/HCPCS: 36415; 82728; 83036

== ENCOUNTER → 2024-11-08 07:06 | Outpatient (CLI) | payer OTHER, SELFPAY ==
[2024-11-08 08:17] LABS: HCG Quantitative /Beta subunit < 2.39 mIU/mL
== END ==
LOC: LAB 07:07
PROVIDERS: PCP Family Medicine; Referring Provider Obstetrics & Gynecology Reproductive Endocrinology; Visit Provider Obstetrics & Gynecology Reproductive Endocrinology
DX: Z32.00 Encounter for pregnancy test, result unknown (principal)
CPT/HCPCS: 36415; 84702

== ENCOUNTER 2025-04-18 13:45 | Emergency (ER) | payer OTHER, SELFPAY ==
[2025-04-18 14:07] VITALS: BP 117/56; PULSE 80; RESP 16; TEMP 36.6; O2SAT 99; BMI 24.3
--- NOTE | 2025-04-18 15:41 | ED_ITS ---
HPI - General Chief complaint: OB/Uterine Contractions Stated complaint: Sent from OB for fluids Time Seen by Provider: 04/18/25 15:21 Source: patient Mode of arrival: Family Vehicle Limitations: no limitations History of Present Illness HPI Narrative: Ms. Clemens is a very pleasant 34 year year old female with a past medical history of gestational diabetes, currently 8 weeks following IVF, following with OB Dr. Joseph who presents to the emergency department for nausea and vomiting in . Patient has been struggling with nausea and vomiting this entire but over the last few days it has gotten worse and she is having difficulty eating or drinking anything. She called her OBGYN office who advised she come to the emergency department for IV fluids. She is having aversion to both food and water, she has morning vomiting and then vomiting only after she tries to eat or drink. The only foods that she has any ability to keep down are sweets carbs. She is feeling somewhat constipated. B6-Unisom helps at night but not during the day. She took Zofran which did not help. She denies any abdominal pain or pelvic pain, no dysuria or vaginal bleeding or discharge. She has a 2-1/2-year-old child born via vaginal delivery. Two prior miscarriages. Surgical history includes appendectomy and ovarian cyst removals. Related Data Home Medications ?Medication ?Instructions ?Recorded ?Confirmed vit no.95-ferrous 1 tab PO DAILY 06/14/18 fumarate 28 mg-folic acid 800 mcg tablet ( Multivitamins) progesterone micronized 100 mg 1 insert vaginal BID 04/02/25 vaginal insert Previous Rx's ?Medication ?Instructions ?Recorded ondansetron 4 mg disintegrating 4 mg PO Q6H PRN nausea and 04/09/25 tablet vomiting #30 tabs metoclopramide HCl 5 mg tablet 5 mg PO Q8H #12 tabs (Reglan) Allergies Allergy/AdvReac Type Severity Reaction Status Date / Time No Known Drug Allergies Allergy Verified 04/18/25 14:26 Review of Systems Review of Systems ROS Unobtainable: All systems reviewed & are unremarkable except as noted in HPI and below Exam Narrative Exam Narrative: GENERAL: 34 year old patient appears stated age. Well-developed patient, in no acute distress. HEAD: Atraumatic. Normocephalic. EYES: No scleral icterus. No injection or drainage. ENT: Nose without bleeding, purulent drainage. Throat without erythema, tonsillar hypertrophy or exudate. Airway patent. NECK: Trachea midline. Cervical ROM intact. CARDIOVASCULAR: Regular rate and rhythm. RESPIRATORY: ?Nonlabored respirations. ?Speaking in clear, full sentences. ?Clear to auscultation. Breath sounds equal bilaterally. No wheezes, rales, or rhonchi. ? GASTROINTESTINAL: Abdomen soft, non-tender, nondistended. BS present. NEURO: AOx3. ?Clear speech. ?Moves all 4 extremities appropriately. SKIN: No rash or erythema of visible areas Initial Vital Signs Initial Vital Signs: Vital Signs Temperature 97.8 F 04/18/25 14:07 Pulse Rate 80 04/18/25 14:07 Respiratory Rate 16 04/18/25 14:07 Blood Pressure 117/56 L 04/18/25 14:07 Pulse Oximetry 99 04/18/25 14:07 Oxygen Delivery Method Room Air 04/18/25 14:07 Course Orders Ordered: ED Orders 04/18/25 15:37 CBC Auto Diff [Complete Blood Count AUTO DIFF] Stat CMP [Comprehensive Metabolic Panel] Stat Lipase Stat Magnesium Stat Urine Microscopic Stat Discontinued Medications Diphenhydramine HCl (Diphenhydramine 50 Mg/Ml Vial) 25 mg IV NOW ONE Stop: 04/18/25 15:43 Last Admin: 04/18/25 15:57 Dose: 25 mg Documented By: BERNY Sodium Chloride (Normal Saline 0.9%) 1,000 mls @ 1,000 mls/hr IV BOLUS ONE Stop: 04/18/25 16:41 Last Infusion: 04/18/25 16:38 Dose: Infused Documented By: Admin: 04/18/25 15:56 Dose: 1,000 mls/hr Documented By: BERNY Metoclopramide HCl (Metoclopramide 10 Mg/2 Ml Inj) 10 mg IV NOW ONE Stop: 04/18/25 15:43 Last Admin: 04/18/25 15:57 Dose: 10 mg Documented By: BERNY Vital Signs Vital signs: Vital Signs - 8 hr 04/18/25 14:07 04/18/25 16:12 Temperature 97.8 F Pulse Rate 80 71 Respiratory Rate 16 14 Blood Pressure 117/56 L 106/63 Pulse Oximetry 99 100 Oxygen Delivery Method Room Air Room Air [facility] - OB/Uterine Contractions Medical Records Attestation: I reviewed the patient's medical records. Lab Data 04/18/25 15:37 04/18/25 15:37 Labs: Lab Results 04/18/25 Range/Units 15:37 WBC 10.3 (4.5-11.0) X10^3/uL RBC 4.19 (4.0-5.2) X10^6/uL Hgb 12.6 (12.0-16.0) g/dL Hct 36.6 (36-46) % MCV 87.4 (80-100) fL MCH 30.0 (26-34) PG MCHC 34.3 (30-36) % RDW 12.9 (11.6-14.8) % Plt Count 234 (150-400) X10^3/uL Neut % (Auto) 69.3 (50-75) % Lymph % (Auto) 22.1 L (25-40) % [place] % (Auto) 7.4 (3-14) % Eos % (Auto) 0.5 L (2-4) % Baso % (Auto) 0.7 (0-2) % Neut # (Auto) 7100 H (9022-3042) /uL Lymph # (Auto) 2300 (2561-4608) /uL [place] # (Auto) 800 (0-900) /uL Eos # (Auto) 100 (0-450) /uL Baso # (Auto) 100 (0-100) /uL Sodium 136 L (137-145) mmol/L Potassium 4.4 (3.4-5.1) mmol/L Chloride 105 (98-107) mmol/L Carbon Dioxide 24 (22-32) mmol/L BUN 13 (7-17) mg/dL Creatinine 0.63 (0.52-1.04) mg/dL Estimated GFR > 60 (>60) mL/min BUN/Creatinine Ratio 20.6 (6-22) Glucose 87 (70-99) mg/dL Calcium 9.5 (8.4-10.2) mg/dL Magnesium 1.8 (1.6-2.3) mg/dL Total Bilirubin 0.3 (0.2-1.3) mg/dL AST 37 H (14-36) IU/L ALT 18 (<35) IU/L Alkaline Phosphatase 64 (38-126) U/L Total Protein 7.6 (6.3-8.2) g/dL Albumin 4.3 (3.5-5.0) g/dL Globulin 3.3 (1.7-4.1) g/dL Albumin/Globulin Ratio 1.3 (1.0-2.8) Lipase 143 (23-300) U/L Urine RBC 0-1/hpf (0-5/HPF) Urine WBC 0-1/hpf (0-5/HPF) Ur Squamous Epith Cells 5-10 /hpf H (0-5/HPF) Other Crystals Other crystals: Urine Bacteria Occasional (0-1) (None) Ur Culture Indicated? Cult not indicated Vol Urine Centrifuged 10ml (spun) Point of Care Testing Test Results Positive Urine Dip Bedside Urine Glucose Negative Bedside Urine Bilirubin - Negative Bedside Urine Ketone - Negative Urine Specific [place] 1.030 Bedside Urine Occult Blood +/- Bedside Urine pH 6.0 Bedside Urine Protein - Negative Bedside Urine Urobilinogen - Negative Bedside Urine Nitrite - Negative Bedside Urine Leukocytes - Negative Esterase MDM Narrative Medical decision making narrative: 34 year year old female with a past medical history of gestational diabetes, currently 8 weeks following IVF, following with OB Dr. Joseph who presents to the emergency department for nausea and vomiting in . Differential diagnosis includes but isn't limited to hyperemesis gravidarum, dehydration, electrolyte abnormality, etc. On exam patient is in no acute distress, nontoxic-appearing, all vital signs within normal limits. Abdomen is soft and nontender, no vaginal bleeding. We will treat with IV fluids, metoclopramide and Benadryl, obtain baseline labs for electrolyte evaluation. Labs overall reassuring with normal WBC count 10.3, hemoglobin 12.6 hematocrit 36.6 platelets 234. Sodium 136, potassium 4.4, chloride 105, magnesium 1.8. Normal renal function with a BUN of 13 creatinine of 0.63. Glucose 87. Normal LFTs. UA without signs of infection. Patient feeling much better after ED treatment, no longer nauseous, able to tolerate p.o. After shared decision-making, I did send her few doses of 5 mg metoclopramide to use at home, she also has Zofran already and uses B6 Unisom at night. Recommended rest, hydration, prompt follow up with OBGYN and discussed strict ED return precautions. She verbalized understanding of all information agreeable with the plan. She is stable for discharge home. Discharge Plan Departure Patient Disposition: Home Clinical Impression: Nausea and vomiting during Instructions: Nausea and Vomiting-Adult Activity Restrictions/Additional Instructions: Dear Sarath, Thank you for coming to the emergency department. Today you were treated with IV fluids, metoclopramide and Benadryl to help with your nausea and vomiting. Your lab work was overall reassuring. At this time I have prescribed you additional metoclopramide/Reglan to use if needed for nausea and vomiting. Try your best to take small but frequent sips of water or electrolyte beverage to prevent dehydration. Please call your OBGYN office for an ER follow up appointment as soon as possible. Please return to the emergency department if you develop any new or worsening symptoms, inability to keep down any food or water, abdominal pain, vaginal bleeding or other concerns. Please follow up with your primary care doctor within the next 2-3 days for ER follow-up. (If you do not have a PCP you can call [phone]. ?to schedule an appointment with an [facility] Primary Care Provider) IF YOU DEVELOP ANY NEW OR WORSENING SYMPTOMS, RETURN TO THE ER! Please read the attached instructions, they highlight more specific treatments and interventions for you at home. Thank you for letting me participate in your care, Rosmery Huggins PA-C Prescriptions: New metoclopramide HCl [Reglan] 5 mg tablet 5 mg PO Q8H Qty: 12 0RF Rx Instructions: administer 30 minutes before meals No Action ondansetron 4 mg tablet,disintegrating 4 mg PO Q6H PRN (Reason: nausea and vomiting) Qty: 30 1RF progesterone micronized 100 mg insert 1 insert vaginal BID PNV cmb#95-ferrous fumarate-FA [ Multivitamins] 28 mg iron- 800 mcg Tablet 1 tab PO DAILY Referrals: Max Lambert DO [Primary Care Provider, Family Practice] Stand Alone Forms: Patient Portal/API, Work Release Note
[2025-04-18 15:53] LABS: Add Manual Diff / Slide Review NO; Hematocrit 36.6 % (36-46); Hemoglobin 12.6 g/dL (12.0-16.0); Lymphocytes Absolute Auto 2300 /uL (1100-4500); Mean Corpuscular HGB Conc 34.3 % (30-36); Mean Corpuscular Hemoglobin 30.0 PG (26-34); Mean Corpuscular Volume 87.4 fL (80-100); Platelet Count 234 X10^3/uL (150-400)
[2025-04-18] MEDS: SODIUM CHLORIDE 0.9% 1,000 ML 1000 ML IV (15:56)
[2025-04-18] MEDS: METOCLOPRAMIDE 10 MG/2 ML INJ IV (15:57)
[2025-04-18] MEDS: diphenhydrAMINE 50 MG/ML VIAL 25 MG IV (15:57)
[2025-04-18 16:09] LABS: Alanine Aminotransferase 18 IU/L (<35); Albumin 4.3 g/dL (3.5-5.0); Albumin Globulin Ratio 1.3 (1.0-2.8); Alkaline Phosphatase 64 U/L (38-126); Blood Urea Nitrogen 13 mg/dL (7-17); Calcium 9.5 mg/dL (8.4-10.2); Carbon Dioxide 24 mmol/L (22-32); Chloride 105 mmol/L (98-107); Estimated Glomerular Filt Rate > 60 mL/min (>60); Globulin 3.3 g/dL (1.7-4.1); Glucose 87 mg/dL (70-99); HEMOLYSIS < 15 (0-50); Lipase 143 U/L (23-300); Magnesium 1.8 mg/dL (1.6-2.3); Potassium 4.4 mmol/L (3.4-5.1); Sodium 136 mmol/L (137-145); Total Protein 7.6 g/dL (6.3-8.2)
[2025-04-18 16:12] VITALS: BP 106/63; PULSE 71; RESP 14; O2SAT 100
[2025-04-18 16:41] LABS: Culture Indicated Urine Cult Not Indicated; Other Crystals Urine Other Crystals:
[2025-04-18 17:36] VITALS: BP 100/57; PULSE 74; RESP 18; TEMP 36.6; O2SAT 100
== END 2025-04-18 17:46 | disposition home or self-care (01) ==
PROVIDERS: Emergency Provider Physician Assistant; PCP Family Medicine
DX: O26.891 Other specified pregnancy related conditions, first trimester (principal); R11.2 Nausea with vomiting, unspecified; Z3A.08 8 weeks gestation of pregnancy; Z87.59 Personal history of other complications of pregnancy, childbirth and the puerperium
CPT/HCPCS: 36415; 80053; 81003; 81015; 81025; 83690; 83735; 85025; 96361; 96374; 96375; 99284; J1200; J2765

== ENCOUNTER → 2025-04-29 08:27 | Outpatient (CLI) | payer OTHER, SELFPAY ==
[2025-04-30 17:21] LABS: Urine Chlamydia NOT DETECTED; Urine N gonorrhoeae NOT DETECTED
== END ==
PROVIDERS: PCP Family Medicine; Visit Provider Obstetrics & Gynecology
DX: O09.819 Supervision of pregnancy resulting from assisted reproductive technology, unspecified trimester (principal); Z3A.09 9 weeks gestation of pregnancy
CPT/HCPCS: 87491; 87591

== ENCOUNTER → 2025-04-29 15:25 | Outpatient (CLI) | payer OTHER, SELFPAY ==
[2025-04-29 16:47] LABS: Add Manual Diff / Slide Review NO; Hematocrit 37.5 % (36-46); Hemoglobin 12.8 g/dL (12.0-16.0); Lymphocytes Absolute Auto 1800 /uL (1100-4500); Mean Corpuscular HGB Conc 34.1 % (30-36); Mean Corpuscular Hemoglobin 29.9 PG (26-34); Mean Corpuscular Volume 87.7 fL (80-100); Platelet Count 255 X10^3/uL (150-400)
[2025-04-29 17:34] LABS: Hemoglobin A1C% w Est Avg Glu 5.5 % (4.0-6.0)
[2025-04-29 17:35] LABS: Alanine Aminotransferase 15 IU/L (<35); Blood Urea Nitrogen 11 mg/dL (7-17); Estimated Glomerular Filt Rate > 60 mL/min (>60); Uric Acid 3.7 mg/dL (2.5-6.2)
[2025-04-29 21:07] LABS: Hepatitis B Surface Antigen NEGATIVE s/c (NEGATIVE)
[2025-04-29 21:28] LABS: HIV 1 & 2 Ab/Ag 4th Gen Combo NEGATIVE (NEGATIVE); Hep C Virus Ab w/Reflex Quant NEGATIVE s/c (NEGATIVE)
== END ==
PROVIDERS: PCP Family Medicine; Referring Provider Obstetrics & Gynecology; Visit Provider Obstetrics & Gynecology
DX: O09.899 Supervision of other high risk pregnancies, unspecified trimester (principal); O09.299 Supervision of pregnancy with other poor reproductive or obstetric history, unspecified trimester; Z86.32 Personal history of gestational diabetes
CPT/HCPCS: 36415; 80055; 82565; 83036; 84450; 84460; 84520; 84550; 86787; 86803; 86850; 86900; 86901; 87086; 87389

== ENCOUNTER → 2025-06-24 16:26 | Outpatient (CLI) | payer OTHER, SELFPAY ==
[2025-06-28 18:36] LABS: Gest Age on Col Date 15.6 weeks (.); OSBR Risk 1IN 10000 (.)
== END ==
PROVIDERS: PCP Family Medicine; Referring Provider Obstetrics & Gynecology; Visit Provider Obstetrics & Gynecology
DX: Z34.92 Encounter for supervision of normal pregnancy, unspecified, second trimester (principal)
CPT/HCPCS: 36415; 82105

== ENCOUNTER → 2025-08-12 06:58 | Outpatient (CLI) | payer OTHER, SELFPAY ==
[2025-08-12 09:10] LABS: Hematocrit 33.4 % (36-46); Hemoglobin 11.4 g/dL (12.0-16.0)
[2025-08-12 09:40] LABS: GTT (PREG) 1 Hour PP 50gm Dose 123 mg/dL (76-139)
== END ==
PROVIDERS: PCP Family Medicine; Referring Provider Obstetrics & Gynecology; Visit Provider Obstetrics & Gynecology
DX: Z13.0 Encounter for screening for diseases of the blood and blood-forming organs and certain disorders involving the immune mechanism (principal); Z13.1 Encounter for screening for diabetes mellitus
CPT/HCPCS: 36415; 82950; 85014; 85018

== ENCOUNTER 2025-09-07 16:36 | Outpatient (CLI) | payer OTHER, SELFPAY ==
[2025-09-07 16:57] LABS: Appearance Urine UA CLEAR; Bilirubin Urine UA NEGATIVE (NEGATIVE); Color Urine UA YELLOW; Glucose Urine UA NEGATIVE (Negative); Ketones Urine UA NEGATIVE (NEGATIVE); Leukocyte Esterase Urine UA NEGATIVE (NEGATIVE); Nitrite Urine UA NEGATIVE (Negative); Occult Blood Urine UA NEGATIVE (Negative); Protein Urine UA NEGATIVE (Negative); Specific Gravity Urine UA 1.010 (1.000-1.035); Urobilinogen Urine UA 0.2 E.U./dL (0.2)
[2025-09-07 16:59] LABS: pH Urine UA 6.0 (4.5-8.0)
--- NOTE | 2025-09-07 17:05 | DI.US.S_ITS ---
PROCEDURE: US OB LIMITED INDICATIONS: lower abd cramping OUTSIDE/PRIOR DATING DATA: Given IVF NELSON of 11/28/2025. TECHNIQUE: Real-time scanning was performed of the fetus, with image documentation. Endovaginal scanning: Performed for additional visualization COMPARISON: Kasey Burgos, US, US OB <= 14 WEEKS FETUS, 05/26/2025, 16:14. FINDINGS: General: A single living intrauterine gestation is present. Presentation: Vertex. Placenta: Placental position is anterior, without previa. No findings of placental abruption can be seen. Amniotic fluid index: 9.6 cm, normal range is 5-24 cm. Single deepest vertical pocket is 4.6 cm. heart rate: 149 beats per minute. Maternal cervical canal: 3.5 cm long. Normal lower limit is 2.5 cm. The Other: Not applicable. IMPRESSION: No findings of placental abruption are seen. We strive to produce accurate, complete, and clear reports of imaging services. To assist us in improving patient care, this report was composed using standard report templates and voice recognition software. Therefore, it may contain abnormal punctuation, insertions and/or omissions. Occasional wrong-word or sound-alike substitutions may occur. Though we review the report and make efforts to correct it, we do recommend that the report be read carefully in proper context to recognize any text inaccuracies. Dictated by: Parviz Carter M.D. on 09/07/2025 at 17:01 Approved by: Parviz Carter M.D. on 09/07/2025 at 17:03
[2025-09-07] MEDS: ONDANSETRON 4 MG ODT SL (17:28)
[2025-09-07 17:36] LABS: Add Manual Diff / Slide Review NO; Hematocrit 34.5 % (36-46); Hemoglobin 11.8 g/dL (12.0-16.0); Lymphocytes Absolute Auto 1500 /uL (1100-4500); Mean Corpuscular HGB Conc 34.0 % (30-36); Mean Corpuscular Hemoglobin 30.2 PG (26-34); Mean Corpuscular Volume 88.7 fL (80-100); Platelet Count 211 X10^3/uL (150-400)
[2025-09-07 17:39] LABS: Alanine Aminotransferase 19 IU/L (<35); Albumin 3.8 g/dL (3.5-5.0); Albumin Globulin Ratio 1.2 (1.0-2.8); Alkaline Phosphatase 69 U/L (38-126); Blood Urea Nitrogen 10 mg/dL (7-17); Calcium 9.3 mg/dL (8.4-10.2); Carbon Dioxide 22 mmol/L (22-32); Chloride 107 mmol/L (98-107); Estimated Glomerular Filt Rate > 60 mL/min (>60); Globulin 3.3 g/dL (1.7-4.1); Glucose 99 mg/dL (70-99); HEMOLYSIS < 15 (0-50); Potassium 4.1 mmol/L (3.4-5.1); Sodium 136 mmol/L (137-145); Total Protein 7.1 g/dL (6.3-8.2)
--- NOTE | 2025-09-07 17:51 | PM.OBTRLD ---
Visit Information Visit Information Date of evaluation: 09/07/25 Primary OB Provider: Fidelia Coronado On-call OB Provider: Nessa Sanchez Reason for Evaluation: Yes other Comments/Additional reasons for admission: Patient is a 35 yo at 28w0d here with cramping and nausea that begin this afternoon. She rehydrated excellently this afternoon but cramping became persistent so she came in for evaluation. She is also having nausea. She did feel unwell yesterday with napping and sleeping more than usual. Baby is moving well. No loss of fluid. [facility] Medical History (Updated 06/24/25 @ 17:38 by Cortes Lyon MD) Gestational diabetes Post depression Difficulty of mother performing History of congenital heart disease in adult Fractures (~2004) Chicken pox (~1991) Infertility (~2019) Gestational hypertension without significant proteinuria, Ankle pain (~2004) Human papilloma virus (~2017) Abnormal Pap smear of cervix (~2017) Bunion of great toe of left foot Pain Heart murmur (~1990) Arthritis Surgical History (Updated 04/02/25 @ 15:07 by Abi Kovacs RN) [place] teeth extracted Status post ORIF of fracture of ankle Anesthesia History of bunionectomy (~2017) H/O ovarian cystectomy Hx of appendectomy History of ankle surgery Family History (Updated 04/02/25 @ 15:09 by Abi Kovacs RN) Mother Bipolar affect, depressed Lupus Grandfather Diabetes mellitus Hypertension Hyperlipidemia Grandmother Hyperlipidemia Hypertension Hyperthyroidism Bipolar affect, depressed History of heart disease Mental health problem Grandmother Cancer Father Hypertension Daughter Congenital heart defect Social History marital status: number of children: 1 household members: spouse and children lives independently: Yes caregiver/support person: Yes housing: house pets and animals: Yes (2 dogs) 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) occupational status: employed current occupational exposures/hazards: Yes special gualberto needs: No travel history: over 6 months ago seatbelt use: always helmet use: Yes water heater temp set < 120 deg: Yes (Will check and adjust) working smoke detector in home: Yes fire extinguisher in home: Yes carbon monox detector in home: Yes firearms in home: Yes firearms unloaded and locked: Yes do you feel safe at home: Yes second hand exposure: No (as a child, not as adult) alcohol intake: former (~1-2 glasses wine/week when not ) substance use type: does not use during the past year weight has: remained stable well-balanced diet: daily or most days daily servings fruits/ve or more times/day caffeine: Yes (Aware of 200mg limit) Type(s) of exercise: walking frequency: 3-4 times per week Objective Labs 09/07/25 17:20 09/07/25 17:20 Labs: Laboratory Results - last 24 hr 09/07/25 09/07/25 16:35 17:20 WBC 10.1 RBC 3.89 L Hgb 11.8 L Hct 34.5 L MCV 88.7 MCH 30.2 MCHC 34.0 RDW 13.7 Plt Count 211 Neut % (Auto) 74.3 Lymph % (Auto) 15.1 L [place] % (Auto) 9.8 Eos % (Auto) 0.6 L Baso % (Auto) 0.2 Neut # (Auto) 7500 H Lymph # (Auto) 1500 [place] # (Auto) 1000 H Eos # (Auto) 100 Baso # (Auto) 0 Sodium 136 L Potassium 4.1 Chloride 107 Carbon Dioxide 22 BUN 10 Creatinine 0.52 Estimated GFR > 60 BUN/Creatinine Ratio 19.2 Glucose 99 Calcium 9.3 Total Bilirubin 0.2 AST 34 ALT 19 Alkaline Phosphatase 69 Total Protein 7.1 Albumin 3.8 Globulin 3.3 Albumin/Globulin Ratio 1.2 Urine Color Yellow Urine Appearance Clear Urine pH 6.0 Ur Specific [place] 1.010 Urine Protein Negative Urine Glucose (UA) Negative Urine Ketones Negative Urine Occult Blood Negative Urine Nitrate Negative Urine Bilirubin Negative Urine Urobilinogen 0.2 Ur Leukocyte Esterase Negative Evaluation Evaluation Baseline heart rate: 145 Variability: Moderate (6-25) monitor accelerations: Present Category of Tracing: Reactive Diagnosis, Plan/Disposition Plan/Disposition Plan: 35 yo at 28w0d evaluated for persistent abdominal discomfort and nausea. US with GERMAIN 9+, cervix 3.5, placenta intact attached and anterior, baby vertex. CMP, CBC, UA and wet mount normal. Suspect viral illness causing discomfort. Offered hydroxyzine, recommend rest and continue rehydrating. Return if symptoms worsen. OB Disposition: home
== END 2025-09-07 18:10 | disposition home or self-care (01) ==
LOC: LABOR 16:41 → OB 09-08 13:49
PROVIDERS: PCP Family Medicine; Referring Provider Student in an Organized Health Care Education/Training Program; Visit Provider Student in an Organized Health Care Education/Training Program
DX: O26.893 Other specified pregnancy related conditions, third trimester (principal); R10.30 Lower abdominal pain, unspecified; Z3A.28 28 weeks gestation of pregnancy
CPT/HCPCS: 36415; 59025; 59050; 76815; 80053; 81003; 85025; 87210; G0378; A9270; G0379

== ENCOUNTER → 2025-10-03 07:26 | Outpatient (CLI) | payer OTHER, SELFPAY ==
--- NOTE | 2025-10-03 07:27 | DI.US.S_ITS ---
PROCEDURE: US OB LIMITED INDICATIONS: EFW OUTSIDE/PRIOR DATING DATA: Working NELSON is 11/28/2025 based on IVF date TECHNIQUE: Real-time scanning was performed of the fetus, with image documentation and biometric measurements. COMPARISON: formerly [facility], OB LIMITED, 09/07/2025, 17:34. FINDINGS: General: A single living intrauterine gestation is present. Presentation: Vertex Placenta: Placental position is anterior , without previa. Amniotic fluid index: 8.8 cm, normal range is 5-24 cm. Single deepest vertical pocket is 4.4 cm. heart rate: 140 beats per minute. Maternal cervical canal: 3.3 cm long. Normal lower limit is 2.5 cm. biometrics: Biparietal diameter: 8.1 cm at 32 weeks and 3 days Head circumference: 29.4 cm at 32 weeks and 3 days Abdominal circumference: 28 cm at 32 weeks and 1 day Femur length: 6 cm 31 weeks and 2 days Clinically estimated gestational age: 32 weeks Composite gestational age from present scan: 32 weeks and 1 day Estimated weight and percentile: 1265 g, 36% Other: Not applicable. IMPRESSION: Intrauterine gestation seen with cardiac motion in vertex presentation. GERMAIN within normal limits. EFW within normal limits at 36%. Dictated by: Emeka Honeycutt M.D. on 10/03/2025 at 10:29 Approved by: Emeka Honeycutt M.D. on 10/03/2025 at 10:31
== END ==
LOC: US 07:26
PROVIDERS: PCP Family Medicine; Referring Provider Obstetrics & Gynecology; Visit Provider Obstetrics & Gynecology
DX: Z34.83 Encounter for supervision of other normal pregnancy, third trimester (principal); Z3A.32 32 weeks gestation of pregnancy
CPT/HCPCS: 76815

== ENCOUNTER 2025-10-06 12:07 | Observation (INO) | payer OTHER, SELFPAY ==
[2025-10-06] MEDS: LACTATED RINGERS 1,000 ML 1000 ML IV ×2 (12:40→13:11)
[2025-10-06] MEDS: ONDANSETRON 4 MG/2 ML INJ IV (13:05)
[2025-10-06 13:09] LABS: Add Manual Diff / Slide Review NO; Hematocrit 36.7 % (36-46); Hemoglobin 12.5 g/dL (12.0-16.0); Lymphocytes Absolute Auto 1300 /uL (1100-4500); Mean Corpuscular HGB Conc 34.0 % (30-36); Mean Corpuscular Hemoglobin 30.2 PG (26-34); Mean Corpuscular Volume 89.0 fL (80-100); Platelet Count 201 X10^3/uL (150-400)
[2025-10-06 13:27] LABS: Alanine Aminotransferase 24 IU/L (<35); Albumin 4.1 g/dL (3.5-5.0); Albumin Globulin Ratio 1.1 (1.0-2.8); Alkaline Phosphatase 76 U/L (38-126); Blood Urea Nitrogen 8 mg/dL (7-17); Calcium 9.3 mg/dL (8.4-10.2); Carbon Dioxide 20 mmol/L (22-32); Chloride 107 mmol/L (98-107); Estimated Glomerular Filt Rate > 60 mL/min (>60); Globulin 3.6 g/dL (1.7-4.1); Glucose 131 mg/dL (70-99); HEMOLYSIS < 15 (0-50); Potassium 3.9 mmol/L (3.4-5.1); Sodium 136 mmol/L (137-145); Total Protein 7.7 g/dL (6.3-8.2); Uric Acid 4.0 mg/dL (2.5-6.2)
[2025-10-06] MEDS: BUTALB/APAP/CAFFEINE 50/325/40 TABLET 1 EACH PO (13:29)
[2025-10-06 14:07] LABS: Protein (Total) Urine Random 16 mg/dL (0-12); Protein Creatinine Ratio Urine 0.35 GRAM/24H
--- NOTE | 2025-10-06 14:28 | P.TNLD_ITS ---
Visit Information Visit Information Date of evaluation: 10/06/25 Primary OB Provider: Fidelia Coronado On-call OB Provider: Fidelia Coronado Reason for Evaluation: Yes other Comments/Additional reasons for admission: Patient is a 35yo @ 32w1d sent to L&D for evaluation due to persistent headache, scotomas and nausea. Symptoms started with nausea on Monday. denies any emesis. but then developed a headache over the next 12 hours. she tried taking tylenol which has not helped the headache. She reports the headache persisting and today now having scotomas (black floaters). She reports increased swelling in her left hand that is noticeable. patient has a history of preeclampsia with her last child and feels that the symptoms started similarly. reports good mvoement. denies ctxs/LOF/VB. Vital Signs Vital Signs: 110s/80s [facility] Medical History (Updated 06/24/25 @ 17:38 by Cortes Lyon MD) Gestational diabetes Post depression Difficulty of mother performing History of congenital heart disease in adult Fractures (~2004) Chicken pox (~1991) Infertility (~2019) Gestational hypertension without significant proteinuria, Ankle pain (~2004) Human papilloma virus (~2017) Abnormal Pap smear of cervix (~2017) Bunion of great toe of left foot Pain Heart murmur (~1990) Arthritis Surgical History (Updated 04/02/25 @ 15:07 by Abi Kovacs RN) [place] teeth extracted Status post ORIF of fracture of ankle Anesthesia History of bunionectomy (~2017) H/O ovarian cystectomy Hx of appendectomy History of ankle surgery Family History (Updated 04/02/25 @ 15:09 by Abi Kovacs RN) Mother Bipolar affect, depressed Lupus Grandfather Diabetes mellitus Hypertension Hyperlipidemia Grandmother Hyperlipidemia Hypertension Hyperthyroidism Bipolar affect, depressed History of heart disease Mental health problem Grandmother Cancer Father Hypertension Daughter Congenital heart defect Social History marital status: number of children: 1 household members: spouse and children lives independently: Yes caregiver/support person: Yes housing: house pets and animals: Yes (2 dogs) education level: master's degree occupational status: employed current occupational exposures/hazards: Yes special gualberto needs: No travel history: over 6 months ago seatbelt use: always helmet use: Yes water heater temp set < 120 deg: Yes (Will check and adjust) working smoke detector in home: Yes fire extinguisher in home: Yes carbon monox detector in home: Yes firearms in home: Yes firearms unloaded and locked: Yes do you feel safe at home: Yes second hand exposure: No (as a child, not as adult) alcohol intake: former substance use type: does not use during the past year weight has: remained stable well-balanced diet: daily or most days daily servings fruits/ve or more times/day caffeine: Yes (Aware of 200mg limit) Type(s) of exercise: walking frequency: 3-4 times per week Review of Systems Constitutional Constitutional: Reports as per HPI Exam Vital Signs (past 8 hours): 110s/80s normotensive over serial BP monitoring Narrative Exam Narrative: General- AAO x 3, NAD Abdomen- gravid, nontender LE- trace edema, + patellar reflexes 2/4, no clonus exam deferred FHTs- baseline 130, moderate variability, +accels, - decels- category 1 toco- irregular ctxs Objective Labs 10/06/25 12:45 10/06/25 12:45 Labs: Laboratory Results - last 24 hr 10/06/25 10/06/25 12:41 12:45 WBC 8.8 RBC 4.12 Hgb 12.5 Hct 36.7 MCV 89.0 MCH 30.2 MCHC 34.0 RDW 13.5 Plt Count 201 Neut % (Auto) 76.0 H Lymph % (Auto) 15.0 L [place] % (Auto) 8.4 Eos % (Auto) 0.4 L Baso % (Auto) 0.2 Neut # (Auto) 6700 Lymph # (Auto) 1300 [place] # (Auto) 700 Eos # (Auto) 0 Baso # (Auto) 0 Sodium 136 L Potassium 3.9 Chloride 107 Carbon Dioxide 20 L BUN 8 Creatinine 0.50 L Estimated GFR > 60 BUN/Creatinine Ratio 16.0 Glucose 131 H Uric Acid 4.0 Calcium 9.3 Total Bilirubin 0.3 AST 41 H ALT 24 Alkaline Phosphatase 76 Total Protein 7.7 Albumin 4.1 Globulin 3.6 Albumin/Globulin Ratio 1.1 U Random Total Protein 16 H Urine Creatinine 44.89 Protein/Creatinin Ratio 0.35 Diagnosis, Plan/Disposition Plan/Disposition Plan: Patient is a 35yo @ 32w1d with persistent headaches, scotomas, nausea. 1. Headache/scotomas/nausea - somewhat improved with IVF and fioricet-- mild headache currently - BP normotensive -- serial monitoring - Urine P/c ratio- 0.35 CBC- wnl, CMP- normal except mildly elevated ALT- 41 - likely diagnosis is a tension headache and associated nausea but concern for atypical presentation of PreE considering patient history of PreE and similar symptoms at onset per patient. - plan to discharge home with 24 hour UP collection, follow up tomorow to drop off urine and will monitor BPs, repeat PreE labs at that time. recommend benadryl/tylenol, warm compresses overnight. - reviewed strict precautions to return to L&D for worsening headache, decreased movement, worsening swelling, labor precautions. given a note for work to be off for the next few days to rest and monitor symptoms. OB Disposition: home
== END 2025-10-06 14:51 | disposition home or self-care (01) ==
PROVIDERS: Admitting Provider Obstetrics & Gynecology; PCP Family Medicine; Referring Provider Obstetrics & Gynecology; Visit Provider Obstetrics & Gynecology
DX: O26.893 Other specified pregnancy related conditions, third trimester (principal); R51.9 Headache, unspecified; H53.459 Other localized visual field defect, unspecified eye; R11.0 Nausea; Z87.59 Personal history of other complications of pregnancy, childbirth and the puerperium; Z3A.32 32 weeks gestation of pregnancy
CPT/HCPCS: 36415; 59025; 80053; 84550; 85025; 96360; G0378; G0379; J2405; J7120

== ENCOUNTER 2025-10-07 09:32 | Observation (INO) | payer OTHER, SELFPAY ==
[2025-10-07 10:23] LABS: Add Manual Diff / Slide Review NO; Hematocrit 35.1 % (36-46); Hemoglobin 12.0 g/dL (12.0-16.0); Lymphocytes Absolute Auto 1300 /uL (1100-4500); Mean Corpuscular HGB Conc 34.1 % (30-36); Mean Corpuscular Hemoglobin 30.2 PG (26-34); Mean Corpuscular Volume 88.5 fL (80-100); Platelet Count 183 X10^3/uL (150-400)
[2025-10-07 10:35] LABS: Alanine Aminotransferase 24 IU/L (<35); Albumin 3.8 g/dL (3.5-5.0); Albumin Globulin Ratio 1.2 (1.0-2.8); Alkaline Phosphatase 68 U/L (38-126); Blood Urea Nitrogen 7 mg/dL (7-17); Calcium 9.0 mg/dL (8.4-10.2); Carbon Dioxide 21 mmol/L (22-32); Chloride 109 mmol/L (98-107); Estimated Glomerular Filt Rate > 60 mL/min (>60); Globulin 3.2 g/dL (1.7-4.1); Glucose 139 mg/dL (70-99); HEMOLYSIS < 15 (0-50); Potassium 4.1 mmol/L (3.4-5.1); Sodium 136 mmol/L (137-145); Total Protein 7.0 g/dL (6.3-8.2); Uric Acid 4.0 mg/dL (2.5-6.2)
[2025-10-07] MEDS: BUTALB/APAP/CAFFEINE 50/325/40 TABLET 1 EACH PO (11:01)
[2025-10-07] MEDS: LACTATED RINGERS 1,000 ML 1000 ML IV (11:24)
[2025-10-07] MEDS: diphenhydrAMINE 50 MG/ML VIAL 25 MG IV (11:25)
[2025-10-07] MEDS: METOCLOPRAMIDE 10 MG/2 ML INJ IV (11:25)
[2025-10-07 15:30] LABS: Protein (Total) Urine Random 13 mg/dL (0-12)
[2025-10-07 16:04] LABS: Total Volume Urine 2950 mL
--- NOTE | 2025-10-07 16:49 | PM.OBTRLD ---
Visit Information Visit Information Date of evaluation: 10/07/25 Primary OB Provider: Fidelia Coronado On-call OB Provider: Fidelia Coronado Comments/Additional reasons for admission: Patient is a 35yo @ 32w4d presented to L&D this am for persistent headache. she was seen yesterday on L&D for headache, nausea, visual changes-- BPs and PIH labs were wnl and sent home with 24 hour UP to assess for atypical PreE presentation. Patient was given fioricet and initially the headache did improve. the headache was frontal at the time. Today she returned to L&D early because this am she woke up from sleep at 2am and when she turned on the lights she had visual changes and the headache returned. described now as a right sided headache. She received IV reglan and benadryl + fioricet on L&D and currently the headache is completely resolved but she is still having the visual changes which she describes as squiggles and a visual delay. denies the black spots (Scotomas) that she had when she had Pre E with her previous . reports mild cramping, denies VB or LOF and reports good movement. denies increased LE eedema or RUQ pain. [facility] Medical History (Updated 10/06/25 @ 16:09 by Shirley Guardado DO) Gestational diabetes Post depression Difficulty of mother performing History of congenital heart disease in adult Fractures (~2004) Chicken pox (~1991) Infertility (~2019) Gestational hypertension without significant proteinuria, Ankle pain (~2004) Human papilloma virus (~2017) Abnormal Pap smear of cervix (~2017) Bunion of great toe of left foot Pain Heart murmur (~1990) Arthritis Surgical History (Updated 04/02/25 @ 15:07 by Abi Kovacs RN) [place] teeth extracted Status post ORIF of fracture of ankle Anesthesia History of bunionectomy (~2017) H/O ovarian cystectomy Hx of appendectomy History of ankle surgery Family History (Updated 04/02/25 @ 15:09 by Abi Kovacs, ANANTH) Mother Bipolar affect, depressed Lupus Grandfather Diabetes mellitus Hypertension Hyperlipidemia Grandmother Hyperlipidemia Hypertension Hyperthyroidism Bipolar affect, depressed History of heart disease Mental health problem Grandmother Cancer Father Hypertension Daughter Congenital heart defect Social History marital status: number of children: 1 household members: spouse and children lives independently: Yes caregiver/support person: Yes housing: house pets and animals: Yes (2 dogs) education level: master's degree occupational status: employed current occupational exposures/hazards: Yes special gualberto needs: No travel history: over 6 months ago seatbelt use: always helmet use: Yes water heater temp set < 120 deg: Yes (Will check and adjust) working smoke detector in home: Yes fire extinguisher in home: Yes carbon monox detector in home: Yes firearms in home: Yes firearms unloaded and locked: Yes do you feel safe at home: Yes second hand exposure: No (as a child, not as adult) alcohol intake: former substance use type: does not use during the past year weight has: remained stable well-balanced diet: daily or most days daily servings fruits/ve or more times/day caffeine: Yes (Aware of 200mg limit) Type(s) of exercise: walking frequency: 3-4 times per week Exam Vital Signs (past 8 hours): Bps- 110s/80s Narrative Exam Narrative: General- AAO x 3, NAD optho exam per Dr. Joseph-- no edema of the optic disc abdomen- soft ,nontender, no RUQ pain FHTs- category 1 toco- irregular ctxs cervix- cl/th/hi, soft, mid position Objective Labs 10/07/25 10:05 10/07/25 10:05 Labs: Laboratory Results - last 24 hr 10/07/25 10/07/25 10:05 14:25 WBC 8.7 RBC 3.96 L Hgb 12.0 Hct 35.1 L MCV 88.5 MCH 30.2 MCHC 34.1 RDW 13.8 Plt Count 183 Neut % (Auto) 77.0 H Lymph % (Auto) 15.3 L [place] % (Auto) 7.1 Eos % (Auto) 0.5 L Baso % (Auto) 0.1 Neut # (Auto) 6700 Lymph # (Auto) 1300 [place] # (Auto) 600 Eos # (Auto) 0 Baso # (Auto) 0 Sodium 136 L Potassium 4.1 Chloride 109 H Carbon Dioxide 21 L BUN 7 Creatinine 0.53 Estimated GFR > 60 BUN/Creatinine Ratio 13.2 Glucose 139 H Uric Acid 4.0 Calcium 9.0 Total Bilirubin 0.2 AST 39 H ALT 24 Alkaline Phosphatase 68 Total Protein 7.0 Albumin 3.8 Globulin 3.2 Albumin/Globulin Ratio 1.2 U Random Total Protein 13 H Urine Collection Time 24 Urine Total Volume 2950 Ur Total Protein 24 Hr 384 H Evaluation Evaluation Baseline heart rate: 140 Variability: Moderate (6-25) monitor accelerations: Present Monitor Decelerations: Absent Contraction Frequency (minutes): 8 Uterine Contraction Intensity: Mild Category of Tracing: Reactive Status: Category l Cervical dilation (cm): 0 Cervical effacement (%): 0 station: -4 Diagnosis, Plan/Disposition Plan/Disposition Plan: Patient is a 35yo @ 32w4d returns with recurring headache/visual changes 1. headache/visual changes - BP normotensive - PIH labs wnl - Headache is right frontal--- resolved now with IV reglan and benadryl - suspect this is a migraine with aura and residual visual changes - concern is for a possible atypical preE presentation but the headache and visual changes are not usual for Pre E and BP remains normotensive. 2. Isolated proteinuria - 24 hour UP- 380mg - without elevated BPs she does not meet criteria for PreEclampsia discussed with patient the concern with the headache, visual changes and proteinuria there is the possibility of atypical presentation but she is otherwise doing well with BPs remaining normotensive, CBC/CMP normal and FHTs reassuring. we discussed since the headache is currently resolved the option to be discharged home and return to clinic tomorrow for BP check, repeat labs and reassess symptoms vs staying overnight in hospital for repeat labs in am and serial BPs. patient prefers to go home and has her partner with her and will return to the hospital for any return of severe headache, worsening visual changes, decreased movement. has a BP cuff and will return to L&D if BP >140/90. patient scheduled tomorrow in clinic at 1200. dispo- discharge home with strict PreE precautions, follow up in clinic tomorrow at 1200 and will check BP and repeat blood work at that time. OB Disposition: home
== END 2025-10-07 16:36 | disposition home or self-care (01) ==
PROVIDERS: Admitting Provider Obstetrics & Gynecology; PCP Family Medicine; Referring Provider Obstetrics & Gynecology; Visit Provider Obstetrics & Gynecology
DX: O26.893 Other specified pregnancy related conditions, third trimester (principal); O12.13 Gestational proteinuria, third trimester; R51.9 Headache, unspecified; H53.9 Unspecified visual disturbance; Z3A.32 32 weeks gestation of pregnancy
CPT/HCPCS: 36415; 59025; 59050; 80053; 84156; 84550; 85025; 96360; 96361; G0378; G0379; J1200; J2765; J7120

== ENCOUNTER 2025-10-08 12:12 | Observation (INO) | payer OTHER, SELFPAY ==
--- NOTE | 2025-10-08 12:16 | DI.US.S_ITS ---
PROCEDURE: US OB BIOPHYSICAL PROFILE INDICATIONS: pre eclampsia, decreased FM, 32 5/7w OUTSIDE/PRIOR DATING DATA: Last menstrual period (LMP): Not available. LMP-based estimated date of delivery (NELSON): Not available. from IVF, NELSON 11/28/25. First dating scan (date and location): 05/26/25 Estimated date of delivery (NELSON) from first dating scan: from IVF. TECHNIQUE: Real-time scanning was performed of the fetus for biophysical profile, with image documentation. Color and pulse Doppler interrogation was also performed of the umbilical artery near its insertion into the placenta. Endovaginal scanning: Not needed COMPARISON: [facility], OB LIMITED, 10/03/2025, 7:39. [facility], OB LIMITED, 09/07/2025, 17:34. [facility], [facility] OB >= 14 WEEKS FETUS, 07/11/2025, 9:57. [facility] OB <= 14 WEEKS FETUS, 05/26/2025, 16:14. [facility] OB BIOPHYSICAL PROFILE, 08/17/2022, 14:56. FINDINGS: General: A single living intrauterine gestation is present. Presentation: Vertex. Placenta: Placental position is anterior , without previa. Amniotic fluid index: 10.7 cm, normal range is 5-24 cm. Single deepest vertical pocket is 4.5 cm. heart rate: 120 beats per minute. Maternal cervical canal: 3.2 cm long. Normal lower limit is 2.5 cm. Estimated gestational age from IVF: 32 weeks 5 days. Biophysical profile: Tone: 2 points. Movement: 2 points. Respiration: To points. Largest pocket of fluid: To points. IMPRESSION: Normal biophysical profile. No abnormality seen. Appropriate interval growth. We strive to produce accurate, complete, and clear reports of imaging services. To assist us in improving patient care, this report was composed using standard report templates and voice recognition software. Therefore, it may contain abnormal punctuation, insertions and/or omissions. Occasional wrong-word or sound-alike substitutions may occur. Though we review the report and make efforts to correct it, we do recommend that the report be read carefully in proper context to recognize any text inaccuracies. Dictated by: Rubens De La Cruz M.D. on 10/08/2025 at 13:46 Approved by: Rubens De La Cruz M.D. on 10/08/2025 at 13:52
[2025-10-08 12:45] LABS: Add Manual Diff / Slide Review NO; Hematocrit 37.0 % (36-46); Hemoglobin 12.3 g/dL (12.0-16.0); Lymphocytes Absolute Auto 1400 /uL (1100-4500); Mean Corpuscular HGB Conc 33.1 % (30-36); Mean Corpuscular Hemoglobin 29.8 PG (26-34); Mean Corpuscular Volume 90.0 fL (80-100); Platelet Count 204 X10^3/uL (150-400)
[2025-10-08 12:58] LABS: Alanine Aminotransferase 21 IU/L (<35); Albumin 4.1 g/dL (3.5-5.0); Albumin Globulin Ratio 1.2 (1.0-2.8); Alkaline Phosphatase 72 U/L (38-126); Blood Urea Nitrogen 8 mg/dL (7-17); Calcium 9.1 mg/dL (8.4-10.2); Carbon Dioxide 20 mmol/L (22-32); Chloride 107 mmol/L (98-107); Estimated Glomerular Filt Rate > 60 mL/min (>60); Globulin 3.5 g/dL (1.7-4.1); Glucose 81 mg/dL (70-99); HEMOLYSIS 28 (0-50); Potassium 4.0 mmol/L (3.4-5.1); Sodium 135 mmol/L (137-145); Total Protein 7.6 g/dL (6.3-8.2); Uric Acid 4.4 mg/dL (2.5-6.2)
[2025-10-08] MEDS: diphenhydrAMINE 50 MG/ML VIAL 25 MG IV (13:15)
[2025-10-08] MEDS: LACTATED RINGERS 1,000 ML 1000 ML IV (13:15)
[2025-10-08] MEDS: METOCLOPRAMIDE 10 MG/2 ML INJ IV (13:15)
[2025-10-08] MEDS: BUTALB/APAP/CAFFEINE 50/325/40 TABLET 1 EACH PO (13:16)
--- NOTE | 2025-10-08 14:22 | DI.MRI.S_ITS ---
PROCEDURE: MR HEAD/BRAIN WO CON INDICATIONS: persistent/recurrent headaches in TECHNIQUE: Noncontrast sagittal FLAIR through the brain. COMPARISON: None. FINDINGS: Image quality: Incomplete exam. Patient terminated the exam early after 1 sequence was acquired. Sagittal FLAIR sequence demonstrates no mass effect or hydrocephalus. No focal white matter lesions identified. Probable partial opacification of a maxillary sinus. IMPRESSION: Patient terminated exam early and limited information is acquired. No large intracranial hemorrhage or mass effect is seen on the single acquired sequence. Repeat exam could be attempted if indicated clinically and if patient is able to tolerate. Approved by: Freddy Willams M.D. on 10/08/2025 at 15:29
[2025-10-08] MEDS: fentaNYL 100 MCG/2 ML INJ 50 MCG IV (14:39)
[2025-10-08 14:41] LABS: Protein (Total) Urine Random 13 mg/dL (0-12); Protein Creatinine Ratio Urine 1.44 GRAM/24H
[2025-10-08 15:49] LABS: Appearance Urine UA CLEAR; Bilirubin Urine UA NEGATIVE (NEGATIVE); Color Urine UA YELLOW; Glucose Urine UA NEGATIVE (Negative); Ketones Urine UA 1+ (NEGATIVE); Leukocyte Esterase Urine UA NEGATIVE (NEGATIVE); Nitrite Urine UA NEGATIVE (Negative); Occult Blood Urine UA NEGATIVE (Negative); Protein Urine UA NEGATIVE (Negative); Specific Gravity Urine UA <=1.005 (1.000-1.035); Urobilinogen Urine UA 0.2 E.U./dL (0.2)
[2025-10-08 15:52] LABS: pH Urine UA 7.0 (4.5-8.0)
--- NOTE | 2025-10-08 21:38 | P.TNLD_ITS ---
Visit Information Visit Information Date of evaluation: 10/08/25 Primary OB Provider: Fidelia Coronado On-call OB Provider: Fidelia Coronado Comments/Additional reasons for admission: Patient is a 35yo @ 32w5d sent from clinic to L&D for evaluation due to recurrent headache. Patient has been evaluated multiple times now on L&D for recurrent headache. It has previously resolved with IV Reglan/benadryl and discharge home last night. Patient reports that she was feeling better but this morning woke up with a severe frontal headache again and just not feeling well. she reports the persistent visual changes which she describes as squiggles in her vision. Reports decreased movement today as well. reports conractions last night increasing but currently are not as strong or frequent. [facility] Medical History (Updated 10/06/25 @ 16:09 by Shirley Guardado DO) Gestational diabetes Post depression Difficulty of mother performing History of congenital heart disease in adult Fractures (~2004) Chicken pox (~1991) Infertility (~2019) Gestational hypertension without significant proteinuria, Ankle pain (~2004) Human papilloma virus (~2017) Abnormal Pap smear of cervix (~2017) Bunion of great toe of left foot Pain Heart murmur (~1990) Arthritis Surgical History (Updated 04/02/25 @ 15:07 by Abi Kovacs RN) [place] teeth extracted Status post ORIF of fracture of ankle Anesthesia History of bunionectomy (~2017) H/O ovarian cystectomy Hx of appendectomy History of ankle surgery Family History (Updated 04/02/25 @ 15:09 by Abi Kovacs RN) Mother Bipolar affect, depressed Lupus Grandfather Diabetes mellitus Hypertension Hyperlipidemia Grandmother Hyperlipidemia Hypertension Hyperthyroidism Bipolar affect, depressed History of heart disease Mental health problem Grandmother Cancer Father Hypertension Daughter Congenital heart defect Social History marital status: number of children: 1 household members: spouse and children lives independently: Yes caregiver/support person: Yes housing: house pets and animals: Yes (2 dogs) education level: master's degree occupational status: employed current occupational exposures/hazards: Yes special gualberto needs: No travel history: over 6 months ago seatbelt use: always helmet use: Yes water heater temp set < 120 deg: Yes (Will check and adjust) working smoke detector in home: Yes fire extinguisher in home: Yes carbon monox detector in home: Yes firearms in home: Yes firearms unloaded and locked: Yes do you feel safe at home: Yes second hand exposure: No (as a child, not as adult) alcohol intake: former substance use type: does not use during the past year weight has: remained stable well-balanced diet: daily or most days daily servings fruits/ve or more times/day caffeine: Yes (Aware of 200mg limit) Type(s) of exercise: walking frequency: 3-4 times per week Review of Systems Constitutional Constitutional: Reports as per HPI Exam Vital Signs (past 8 hours): BP -110-120s/70-80s Narrative Exam Narrative: General- AAO X3, NAD abdomen- soft, nontender, no RUQ pain/epigastric pain no flank pain tenderness on costochondral margin on the left flank LE- trace edema cervix- /, mid position Objective Labs 10/08/25 12:25 10/08/25 12:25 Labs: Laboratory Results - last 24 hr 10/08/25 10/08/25 12:25 13:40 WBC 9.4 RBC 4.12 Hgb 12.3 Hct 37.0 MCV 90.0 MCH 29.8 MCHC 33.1 RDW 13.5 Plt Count 204 Neut % (Auto) 76.4 H Lymph % (Auto) 15.1 L [place] % (Auto) 8.1 Eos % (Auto) 0.3 L Baso % (Auto) 0.1 Neut # (Auto) 7200 H Lymph # (Auto) 1400 [place] # (Auto) 800 Eos # (Auto) 0 Baso # (Auto) 0 Sodium 135 L Potassium 4.0 Chloride 107 Carbon Dioxide 20 L BUN 8 Creatinine 0.54 Estimated GFR > 60 BUN/Creatinine Ratio 14.8 Glucose 81 Uric Acid 4.4 Calcium 9.1 Total Bilirubin 0.4 AST 41 H ALT 21 Alkaline Phosphatase 72 Total Protein 7.6 Albumin 4.1 Globulin 3.5 Albumin/Globulin Ratio 1.2 Urine Color Yellow Urine Appearance Clear Urine pH 7.0 Ur Specific [place] <=1.005 Urine Protein Negative Urine Glucose (UA) Negative Urine Ketones 1+ H Urine Occult Blood Negative Urine Nitrate Negative Urine Bilirubin Negative Urine Urobilinogen 0.2 Ur Leukocyte Esterase Negative Urine RBC None seen Urine WBC None seen Ur Squamous Epith Cells 0-1 /hpf Urine Bacteria None seen Vol Urine Centrifuged 10ml (spun) U Random Total Protein 13 H Urine Creatinine 9.00 Protein/Creatinin Ratio 1.44 Evaluation Evaluation Baseline heart rate: 140 Variability: Moderate (6-25) monitor accelerations: Present Monitor Decelerations: Absent Contraction Frequency (minutes): 8 Uterine Contraction Intensity: Mild Category of Tracing: Reactive Status: Category l Cervical dilation (cm): 1 Cervical effacement (%): 30 station: -3 Diagnosis, Plan/Disposition Plan/Disposition Plan: Patient is a 35yo @ 32w5d presents with recurrent headache. 1. recurrent frontal headache/visual changes - now improved s/p IV reglan and benadryl, fioricet - MRI performed- limited as paitent did not tolerate-- no hemorrhage or tumor noted on limited views - BPs remain normotensive - PreE labs repeated- stable - Headache resolved with medication and no concerning findings on limited MRI, reasonable to discharge home but given strict precautions to return to the hospital. Rx sent for Reglan 10mg and fioricet - low concern for atypical preE considering headache resolves with medication and frontal location but considering the proteinuria will continue to monitor closely for signs of atypical presentation of PreE 2. Proteinuria - 24 hour UP- 386gm on 10/07/25 - P/C ratio today is risen from previous- 1.4, but the total protein is unchanged and urine dip- neg protein. - patient will collect a repeat 24 hour UP for a more definitive urine protein level 3. contractions - cervix 3 on presentation today---> 6 hours recheck - contractions mild and irregular, some were moderate but currently mild. - no evidence of active labor at this time but given strict labor precautions to return to clinic 4. Decreased movement - NST reactive BPP- 05/16 - recent growth 10/03/25- EFW 36% dispo- discharge home, given strict PreE and labor precautions, patient will start collecting 24 hour UP tomorrow am and will return to L&D on monday for repeat BP monitoring, PreE labs and turn in 24 hour UP OB Disposition: home
== END 2025-10-08 17:33 | disposition home or self-care (01) ==
PROVIDERS: Admitting Provider Obstetrics & Gynecology; PCP Family Medicine; Referring Provider Obstetrics & Gynecology; Visit Provider Obstetrics & Gynecology
DX: O26.893 Other specified pregnancy related conditions, third trimester (principal); O12.13 Gestational proteinuria, third trimester; O47.03 False labor before 37 completed weeks of gestation, third trimester; O36.8130 Decreased fetal movements, third trimester, not applicable or unspecified; R51.9 Headache, unspecified; H53.9 Unspecified visual disturbance; Z3A.32 32 weeks gestation of pregnancy
CPT/HCPCS: 36415; 59025; 59050; 70551; 76819; 80053; 81001; 84550; 85025; 96360; G0378; G0379; J1200; J2765; J3010; J7120